=== PATIENT | male | born 1950 | race African-American/Black ===

== ENCOUNTER 2020-03-31 09:15 | Outpatient (RCR) | payer MEDICARE, SELFPAY | END 2020-05-16 23:59 | disposition home or self-care (01) | LOC: ANHDMC 09:15 | PROVIDERS: PCP Internal Medicine; Visit Provider Internal Medicine | DX: E11.65 Type 2 diabetes mellitus with hyperglycemia (principal); Z71.89 Other specified counseling | CPT/HCPCS: G0108 ==

== ENCOUNTER 2020-07-19 09:15 | Outpatient (RCR) | payer MEDICARE, SELFPAY | END 2020-07-19 11:03 | disposition home or self-care (01) | LOC: ANHDMC 09:15 | PROVIDERS: PCP Internal Medicine; Visit Provider Internal Medicine | DX: E11.65 Type 2 diabetes mellitus with hyperglycemia (principal); Z71.89 Other specified counseling | CPT/HCPCS: G0108 ==

== ENCOUNTER 2020-12-02 10:20 | Outpatient (RCR) | payer MEDICARE, SELFPAY | END 2020-12-02 11:37 | disposition home or self-care (01) | LOC: ANHDMC 10:20 | PROVIDERS: PCP Internal Medicine; Visit Provider Internal Medicine | DX: E11.65 Type 2 diabetes mellitus with hyperglycemia (principal); Z71.89 Other specified counseling | CPT/HCPCS: G0108 ==

== ENCOUNTER 2023-03-29 08:09 | Outpatient (CLI) | payer MEDICARE, SELFPAY ==
--- NOTE | ~2023-03-29 | XR_ITS ---
Clinical Indication: Cough PA and lateral views of the chest: Comparison: None Findings: Left lower lobe consolidation is consistent with pneumonia. Right lung is clear. Cardiomed iastinal silhouette is within normal limits. Bones and soft tissues are unremarkable. Impression: Left lower lobe pneumonia. Follow-up to radiographic resolution is advised. Reviewed, dictated and finalized at [facility]. Impression: Left lower lobe pneumonia. Follow-up to radiographic resolution is advised.
== END 2023-03-29 08:10 | disposition home or self-care (01) ==
PROVIDERS: PCP Nurse Practitioner; Visit Provider Nurse Practitioner
DX: R05.9 Cough, unspecified (principal); J18.9 Pneumonia, unspecified organism
CPT/HCPCS: 71046

== ENCOUNTER 2023-05-02 09:23 | Outpatient (CLI) | payer MEDICARE, SELFPAY ==
--- NOTE | ~2023-05-02 | US_ITS ---
EXAMINATION: US soft tissue LE RT DATE: 05/02/2023 10:07 INDICATION: Right thigh mass. TECHNIQUE: Multiple grayscale and Doppler ultrasound images of the right thigh were obtained. COMPARISON: None FINDINGS: There is no abnormal mass in the patient's area of concern in right lateral thigh. IMPRESSION: 1. No abnormal mass in the patient's area of concern in right lateral thigh. Reviewed, dictated and finalized at location E.
--- NOTE | ~2023-05-02 | XR_ITS ---
Clinical Indication: Pneumonia PA and lateral views of the chest: Comparison: 03/29/2023 Findings: There is persistent left lower lobe airspace consolidation. Right lung clear. Cardiomedias tinal silhouette is within normal limits. Bones and soft tissues are unremarkable. Impression: Persistent left lower lobe airspace consolidation, again suspicious for pneumonia. Continued follow-u p to radiographic resolution is advised. Reviewed, dictated and finalized at location . Impression: Persistent left lower lobe airspace consolidation, again suspicious for pneumon ia. Continued follow-up to radiographic resolution is advised.
== END 2023-05-02 09:24 | disposition home or self-care (01) ==
PROVIDERS: PCP Nurse Practitioner; Visit Provider Nurse Practitioner
DX: R22.41 Localized swelling, mass and lump, right lower limb (principal); J18.9 Pneumonia, unspecified organism
CPT/HCPCS: 71046; 76882

== ENCOUNTER 2023-05-13 07:28 | Outpatient (CLI) | payer MEDICARE, SELFPAY ==
--- NOTE | ~2023-05-13 | CT_ITS ---
EXAMINATION: CT LE RT wo con DATE: 05/13/2023 08:03 INDICATION: Right thigh mass and pain. The patient describes 8 lateral bumps in the thigh. TECHNIQUE: Computed tomography (CT) of the right lower limb was performed without intravenous contras t. Automated exposure control and iterative reconstruction technique were employed. The dose-length p roduct was 943.93 mGy-cm. COMPARISON: Ultrasound 05/02/2023 FINDINGS: Bone alignment is normal. No fracture. There is moderate right hip osteoarthritis and mild right knee osteoarthritis. There is sclerosis in distal femur and proximal tibia, consistent with ost eonecrosis. No knee joint effusion. There is a 6 x 13 mm cortical lytic lesion in proximal femoral di aphysis laterally. The prostate is moderately enlarged. There is a right inguinal hernia containing f at. IMPRESSION: 1. No abnormal soft tissue mass to correlate with the patient's symptoms. 2. Osteonecrosis involving distal femur and proximal tibia. 3. 13 mm cortical lytic lesion in proximal right femoral diaphysis laterally. This finding is most li nicole benign, but metastatic disease or multiple myeloma cannot be excluded. 4. Polyarticular osteoarthritis. Reviewed, dictated and finalized at location A. IMPRESSION: 1. No abnormal soft tissue mass to correlate with the patient's symptoms. 2. Osteonecrosis involving distal femur and proximal tibia. 3. 13 mm cortical lytic lesion in proximal right femoral diaphysis laterally. T his finding is most likely benign, but metastatic disease or multiple myeloma c annot be excluded. 4. Polyarticular osteoarthritis.
== END 2023-05-13 07:29 | disposition home or self-care (01) ==
PROVIDERS: PCP Nurse Practitioner; Visit Provider Nurse Practitioner
DX: R22.41 Localized swelling, mass and lump, right lower limb (principal)
CPT/HCPCS: 73700

== ENCOUNTER 2023-12-24 13:04 | Outpatient (CLI) | payer MEDICARE, SELFPAY ==
--- NOTE | ~2023-12-24 | US_ITS ---
EXAMINATION:US venous doppler LE BI INDICATION:Leg swelling TECHNIQUE: Multiple grayscale, color flow and Doppler images of the right and left lower extremity de ep venous systems were obtained and reviewed. COMPARISON:No prior studies for comparison. FINDINGS: The common femoral, superficial femoral and popliteal veins demonstrate normal respiratory variation, augmentation and compressibility. Color flow is also seen within the posterior tibial, pe roneal, greater saphenous and profunda veins. IMPRESSION: 1: No lower extremity deep venous thrombosis. Reviewed, dictated and finalized at location B.
== END 2023-12-24 13:05 | disposition home or self-care (01) ==
LOC: ANHIMG 13:07
PROVIDERS: PCP Nurse Practitioner
DX: M79.89 Other specified soft tissue disorders (principal)
CPT/HCPCS: 93970

== ENCOUNTER 2024-01-15 07:13 | Outpatient (CLI) | payer MEDICARE, SELFPAY ==
--- NOTE | ~2024-01-15 | XR_ITS ---
Left Shoulder Technique: AP and scapular Y views were obtained. Clinical History: Pain Findings: No fracture or dislocation is seen. Osseous alignment is anatomic. The glenohumeral and acr omioclavicular joint spaces demonstrate minimal degenerative change. Soft tissues are unremarkable. Impression: Minimal degenerative change, as above. Reviewed, dictated and finalized at location M. Impression: Minimal degenerative change, as above.
== END 2024-01-15 07:14 | disposition home or self-care (01) ==
LOC: ANHIMG 07:16
PROVIDERS: PCP Nurse Practitioner; Visit Provider Nurse Practitioner
DX: M25.512 Pain in left shoulder (principal); G89.29 Other chronic pain
CPT/HCPCS: 73030

== ENCOUNTER 2024-03-03 12:47 | Emergency (ER) | payer MEDICARE, SELFPAY ==
[2024-03-03 12:57] VITALS: BP 99/56; PULSE 85; RESP 16; TEMP 37.2; O2SAT 97
[2024-03-03 13:01] VITALS: BP 99/56; PULSE 85; RESP 16; TEMP 37.2; O2SAT 97
--- NOTE | 2024-03-03 13:01 | ED.FALL ---
HPI - Fall General Chief Complaint: Fall Stated Complaint: Fall Injury, Lower Back Pain/Sore Time Seen by Provider: 03/03/24 13:28 Source: patient and RN notes reviewed Mode of arrival: ambulatory Limitations: no limitations History of Present Illness HPI Narrative: 74-year-old male presents with concern for a wound on his coccyx. Reports he fell a couple of weeks ago was hospitalized for a few days after the fall. He reports the wound was the results of the fall but has been getting worse. He reports his oncologist told him to come here for evaluation of the wound. Reports it is draining and he has been using a pad to catch the drainage. Patient is being treated for stage IV lung cancer, uses a walker at baseline. MD complaint: other (wound) Related Data Home Medications Medication Instructions Recorded Confirmed acetaminophen 325 mg capsule 325 mg PO Q6H PRN Pain 09/24/23 03/03/24 (Tylenol) cholecalciferol (vitamin D3) 1 tab-cap PO DAILY 09/24/23 03/03/24 multivitamin with minerals-folic 1 tablet PO DAILY 09/24/23 03/03/24 acid 80 mcg chewable tablet (Centrum Adult 50 Plus) oxycodone 5 mg tablet 5 mg PO Q8H PRN Pain 09/24/23 03/03/24 timolol maleate 0.5 % eye drops 1 drp EACH EYE Q12H 09/24/23 03/03/24 Allergies Allergy/AdvReac Type Severity Reaction Status Date / Time celecoxib Allergy Intermediate RASH ON Verified 03/03/24 12:49 STOMACH AND CHEST Review of Systems Review of Systems: CONSTITUTIONAL: Denies malaise, chills, sweats, or fever. CARDIOVASCULAR: Denies chest pain, palpitations, or edema. SKIN: Reports draining wound on his buttock MUSCULOSKELETAL: Denies myalgia. 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 ANG on CPAP Rheumatoid arthritis Type 2 diabetes mellitus with diabetic neuropathy Surgical History Surgical History (Updated 02/04/24 @ 11:14 by Reba Delarosa [facility]) History of knee surgery 1994, left knee History of surgery on lower extremity right thigh cancer removal Family History Family History Father Family history of glaucoma Family history of diabetes mellitus in first degree relative Diabetes mellitus Cerebrovascular accident Other Acute myocardial infarction Family history of malignant neoplasm Hypertension Social History Social History (Updated 02/04/24 @ 11:15 by Reba Delarosa [facility]) Smoking packs per day: 0.5 Smoking cigarettes per day: 10.0 Years smoked: 30 Smoking pack-years: 15.00 Smoking status: Former smoker Smoking end date: 09/02/92 Alcohol intake: former Substance use: never Substance use type: does not use Current Housing: Decline to Answer Concerned About Future Housing: Decline to Answer Difficulty Paying Gas/Electric Bills: Decline to Answer Difficulty Paying for Meds: Decline to Answer Currently Unemployed: Decline to Answer Education: Decline to Answer Difficulty w/ Childcare or Family Care: Decline to Answer Living arrangements: alone Occupation/Education: retired Comments At time of signature, agree with nursing past medical, surgical, social and family history. There is no relevant family history pertinent to the presenting complaint Exam Narrative: GENERAL: Well-appearing, well-nourished, and in no acute distress. HEAD: Normocephalic, atraumatic. EYES: PERRLA, conjunctivae clear, and EOMI. ENT: Mucous membranes moist. NECK: Supple. No lymphadenopathy CHEST: Speaks in full sentences. No respiratory distress. H
== END 2024-03-03 13:45 | disposition home or self-care (01) ==
PROVIDERS: Emergency Provider Nurse Practitioner; PCP Nurse Practitioner
DX: L89.159 Pressure ulcer of sacral region, unspecified stage (principal); C34.90 Malignant neoplasm of unspecified part of unspecified bronchus or lung; M19.90 Unspecified osteoarthritis, unspecified site; I10 Essential (primary) hypertension; E78.5 Hyperlipidemia, unspecified; G47.33 Obstructive sleep apnea (adult) (pediatric); M06.9 Rheumatoid arthritis, unspecified; E11.40 Type 2 diabetes mellitus with diabetic neuropathy, unspecified; N40.1 Benign prostatic hyperplasia with lower urinary tract symptoms
CPT/HCPCS: 99213; G0463

== ENCOUNTER 2024-03-04 10:46 | Inpatient (IN) | payer MEDICARE, SELFPAY ==
--- NOTE | ~2024-03-04 | XR_ITS ---
EXAMINATION: XR sacrum coccyx min 2V DATE: 03/05/2024 10:33 INDICATION: Large sacral ulcer. TECHNIQUE: 3 views of the sacrum and coccyx were obtained. COMPARISON: None. FINDINGS: There is 3 mm anterolisthesis of L4 on L5. There is mild lumbar spondylosis. There is mild osteoarthritis of the hips. There is a sacral decubitus ulcer with soft tissue gas. IMPRESSION: 1. Sacral decubitus ulcer. No specific evidence of osteomyelitis. Reviewed, dictated and finalized at location E.
[2024-03-04 11:26] VITALS: BP 111/59; PULSE 86; RESP 16; TEMP 36.4; O2SAT 96
[2024-03-04 13:04] LABS: Hematocrit 31.3 % (42.0-52.0); Hemoglobin 9.6 g/dL (14.0-18.0); Mean Corpuscular HGB Conc 30.7 g/dl (32-36); Mean Corpuscular Hemoglobin 31.4 pg (26-34); Mean Corpuscular Volume 102.3 fl (80-100); Mean Platelet Volume 8.6 fl (7.4-10.4); Platelet Count Result 203 k/mm3 (150-375); Red Blood Count 3.06 M/mm3 (4.6-6.20); Red Cell Distribution Width 15.2 % (11.5-14.5); White Blood Count 4.9 K/mm3 (4.5-10.0)
--- NOTE | 2024-03-04 13:15 | ED.GENADULT ---
HPI - General Adult General Chief complaint: Unspecified Stated complaint: RECTAL BLEEDING Time Seen by Provider: 03/04/24 12:05 History of Present Illness HPI narrative: Patient is a 74-year-old male the emergency department this afternoon complaining of worsening sacral wound. Patient states about 3 weeks ago he fell onto his sacrum and sustained a wound and that it has been growing and getting worse. Patient states that given the location of it every time he uses the bathroom and wipes he feels as though he is sloughing off some of the skin. The sacral wound has increased in size for the past 3 weeks. Patient admits that he has not seen wound care as he has not been able to get. Patient states that his doctor called our wound clinic and be states that they were not able to get him in for another 3 weeks. Patient states that his doctor is concern for the wound getting infected and was placed on clindamycin which he has had 1 dose yesterday. Patient states that now the wound is draining a foul odor with intermittent and bleeding. He denies any fevers or chills at home and denies any additional concerns or symptoms at this time. Related Data Home Medications Medication Instructions Recorded Confirmed acetaminophen 325 mg capsule 325 mg PO Q6H PRN Pain 09/24/23 03/03/24 (Tylenol) cholecalciferol (vitamin D3) 1 tab-cap PO DAILY 09/24/23 03/03/24 multivitamin with minerals-folic 1 tablet PO DAILY 09/24/23 03/03/24 acid 80 mcg chewable tablet (Centrum Adult 50 Plus) oxycodone 5 mg tablet 5 mg PO Q8H PRN Pain 09/24/23 03/03/24 timolol maleate 0.5 % eye drops 1 drp EACH EYE Q12H 09/24/23 03/03/24 Allergies Allergy/AdvReac Type Severity Reaction Status Date / Time celecoxib Allergy Intermediate RASH ON Verified 03/04/24 11:30 STOMACH AND CHEST Review of Systems Review of Systems: All systems are reviewed and are negative unless stated otherwise in the HPI. 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 ANG on CPAP Rheumatoid arthritis Type 2 diabetes mellitus with diabetic neuropathy Surgical History Surgical History History of knee surgery 1994, left knee History of surgery on lower extremity right thigh cancer removal Family History Family History Father Family history of glaucoma Family history of diabetes mellitus in first degree relative Diabetes mellitus Cerebrovascular accident Other Acute myocardial infarction Family history of malignant neoplasm Hypertension Social History Social History Smoking packs per day: 0.5 Smoking cigarettes per day: 10.0 Years smoked: 30 Smoking pack-years: 15.00 Smoking status: Former smoker Smoking end date: 09/02/92 Alcohol intake: former Substance use: never Substance use type: does not use Current Housing: Decline to Answer Concerned About Future Housing: Decline to Answer Difficulty Paying Gas/Electric Bills: Decline to Answer Difficulty Paying for Meds: Decline to Answer Currently Unemployed: Decline to Answer Education: Decline to Answer Difficulty w/ Childcare or Family Care: Decline to Answer Living arrangements: alone Occupation/Education: retired Exam Narrative: General: Alert, awake, afebrile, in no acute distress. HEENT: PERRL, no rhinorrhea, no post nasal drip, oropharynx clear. Cardiovascular: Regular rate and rhythm, no murmurs, rubs or gallops, no peripheral edema. Respiratory: Clear to aus
[2024-03-04 13:19] LABS: Alanine Aminotransferase 19 U/L (6-50); Albumin Level 3.5 g/dL (3.5-5.1); Alkaline Phosphatase 87 U/L (38-126); Anion Gap 11 mmol/L (4-12); Aspartate Amino Transferase 38 U/L (17-59); Bilirubin,Total 0.6 mg/dL (0.2-1.3); Blood Urea Nitrogen 15 mg/dL (9-20); Carbon Dioxide 20 mmol/L (22-30); Chloride 105 mmol/L (98-107); Estimated CRCL calculation 54 ml/min; Estimated Glomerular Filt Rate > 60; Glucose 212 mg/dL (65-110); Potassium 3.3 mmol/L (3.4-5.0); Sodium 136 mmol/L (137-145)
[2024-03-04 13:23] LABS: Band Neutrophils Percent 4 % (0-6); Lymphocytes Absolute Manual 0.93 K/mm3 (1.1-4.5); Monocytes Absolute Manual 0.78 K/mm3 (0.1-0.90); Monocytes Percent Manual 16 % (3-9); Neutrophils Absolute Manual 3.18 K/mm3 (1.3-6.7); Neutrophils Percent Manual 61 % (46-73); Total Cells Counted 100
[2024-03-04 13:25] LABS: Macrocytosis 1+ (NORMAL); Platelet Estimate Adequate (Adequate); Schistocytes None Seen
[2024-03-04 13:26] LABS: CRP 12.4 mg/dL (<1.0)
[2024-03-04 14:15] LABS: Erythrocyte Sedimentation Rate > 140 mm/hr (0-20)
[2024-03-04 15:26] VITALS: BP 98/50; PULSE 81; RESP 18; TEMP 36.7; O2SAT 99
--- NOTE | 2024-03-04 15:59 | ADMGEN ---
This patient, Lisa Frank Jr., was admitted to 3 [facility] Surg Room 311-01. Patient/family oriented to hospital policies and general routines including ID bracelet, bed and alarms, visiting hours, pain management, procedures, bathroom and other care routines, personal items, smoking policy, room service/diet, and visiting hours. Information on how to activate the Rapid Response Team has been discussed. Patient/Family are encouraged to report perceived risks to care and to ask questions if they do not understand what they are told or what they should do.
[2024-03-04] MEDS: VANCOMYCIN 1,000 MG/NS 250 ML 1,000 MG/250 ML BAG 250 MG IVPB (17:40)
[2024-03-04] MEDS: SOD HYPOCHLORITE 1/4 STRENGTH 473 ML 1 APPLIC TOPICAL (17:41)
[2024-03-04] MEDS: ceFAZolin 2 GM/D5W 50 ML 2 GM/50 ML BAG IVPB (18:47)
[2024-03-04 20:55] VITALS: BP 93/54; PULSE 87; RESP 20; TEMP 36.6; O2SAT 99
[2024-03-04 22:45] VITALS: RESP 14; O2SAT 99
[2024-03-05] MEDS: ceFAZolin 2 GM/D5W 50 ML 2 GM/50 ML BAG IVPB ×3 (01:09→17:37)
--- NOTE | 2024-03-05 02:13 | PM.IMHP ---
H&P: HPI History of Present Illness Date/Time: 03/05/24 02:13 Chief Complaint: Bleeding and pus drainage from sacral wound Narrative: This is a pleasant 74-year-old male with PMH arthritis requiring walker for ambulation, BPH, glaucoma, hypertension, hyperlipidemia, lung cancer currently being treated, ANG on CPAP compliant, insulin-dependent diabetes mellitus, dyslipidemia, who presents complaining of worsening of his sacral wound. Few weeks ago he fell on his butt and since then has a wound and has not been able to get in to see wound care yet. 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 ER demonstrated BP of 111/59 and lowest 99/50. He has a history of low blood pressure. WBC 4.9, hemoglobin 9.6 without any values to compare previously, potassium 3.3, CRP 12.4. Received a dose of vancomycin and cefazolin 2 g x 1. Admitted for further workup of infected sacral wound on 03/05/2024. 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 ANG on CPAP Rheumatoid arthritis Type 2 diabetes mellitus with diabetic neuropathy Surgical History Surgical History History of knee surgery 1994, left knee History of surgery on lower extremity right thigh cancer removal Family History Family History (Updated 03/04/24 @ 16:12 by Crissy Conrad RN) Father Diabetes mellitus Family history of diabetes mellitus in first degree relative Family history of glaucoma Cerebrovascular accident Other Acute myocardial infarction Cancer Family history of malignant neoplasm Hypertension Social History Social History Smoking packs per day: 0.5 Smoking cigarettes per day: 10.0 Years smoked: 30 Smoking pack-years: 15.00 Smoking status: Never smoker Smoking end date: 09/02/92 Alcohol intake: never Substance use: never Substance use type: does not use Do You Feel Safe in your Home?: Yes Lack of Transportation: No Lack of Food: Never True Current Housing: I Have Housing Concerned About Future Housing: No Difficulty Paying Gas/Electric Bills: No Difficulty Paying for Meds: No Currently Unemployed: No Education: High School Diploma/GED Difficulty w/ Childcare or Family Care: No Living arrangements: alone Occupation/Education: retired Spiritual care concerns: Yes (JW - no blood) Meds Home Medications and Allergies Home Medications Medication Instructions Recorded Confirmed Type blood pressure test kit-large #1 ea 05/13/20 03/04/24 Rx blood sugar diagnostic (Accu-Chek #200 strips 10/09/22 03/04/24 Rx Guide test strips) lancets (Accu-Chek Softclix See Rx Instructions .Route 10/17/22 03/04/24 Rx Lancets) .COMPLEX #600 ea acetaminophen 325 mg capsule 325 mg PO Q6H PRN Pain 09/24/23 03/04/24 History (Tylenol) cholecalciferol (vitamin D3) 1 tab-cap PO DAILY 09/24/23 03/04/24 History multivitamin with minerals-folic 1 tablet PO DAILY 09/24/23 03/04/24 History acid 80 mcg chewable tablet (Centrum Adult 50 Plus) oxycodone 5 mg tablet 5 mg PO Q8H PRN Pain 09/24/23 03/04/24 History timolol maleate 0.5 % eye drops 1 drp EACH EYE Q12H 09/24/23 03/04/24 History tamsulosin 0.4 mg capsule See Rx Instructions .Route 10/07/23 03/04/24 Rx .COMPLEX #180 caps semaglutide 0.25 mg or 0.5 mg (2 See Rx Instructions .Route 04
[2024-03-05] MEDS: oxyCODONE HCL (*CRX) 5 MG TAB IR PO ×3 (03:22→16:58)
[2024-03-05] MEDS: POTASSIUM CHLORIDE 20 MEQ ER TABLET PO (03:23)
[2024-03-05] MEDS: SOD HYPOCHLORITE 1/4 STRENGTH 473 ML 1 APPLIC TOPICAL ×3 (03:39→20:55)
[2024-03-05] MEDS: SODIUM CHLORIDE 0.9% IV 1,000 ML 100 ML IV CONT (03:39)
[2024-03-05 05:15] VITALS: BP 103/55; PULSE 99; RESP 16; TEMP 36.9; O2SAT 99
[2024-03-05 06:06] LABS: Hematocrit 27.6 % (42.0-52.0); Hemoglobin 8.5 g/dL (14.0-18.0); Mean Corpuscular HGB Conc 30.8 g/dl (32-36); Mean Corpuscular Volume 100.7 fl (80-100); Mean Platelet Volume 8.2 fl (7.4-10.4); Platelet Count Result 187 k/mm3 (150-375); Red Blood Count 2.74 M/mm3 (4.6-6.20); Red Cell Distribution Width 15.3 % (11.5-14.5); White Blood Count 5.1 K/mm3 (4.5-10.0)
[2024-03-05 06:15] LABS: Estimated CRCL calculation 54 ml/min; Estimated Glomerular Filt Rate > 60
[2024-03-05 06:18] LABS: Anion Gap 10 mmol/L (4-12); Blood Urea Nitrogen 12 mg/dL (9-20); Calcium 7.7 mg/dL (8.4-10.2); Carbon Dioxide 19 mmol/L (22-30); Chloride 109 mmol/L (98-107); Estimated CRCL calculation 54 ml/min; Estimated Glomerular Filt Rate > 60; Glucose 184 mg/dL (65-110); Magnesium 2.1 mg/dL (1.6-2.3); Potassium 3.2 mmol/L (3.4-5.0); Sodium 138 mmol/L (137-145)
[2024-03-05 06:27] LABS: Iron 21 ug/dL (49-181)
[2024-03-05 06:37] LABS: Percent Iron Saturation 13 % (20-50)
[2024-03-05 07:23] LABS: Folic Acid 17.6 ng/mL (2.76->20)
[2024-03-05 07:49] LABS: Glucose Point of Care 161 mg/dl (65-105)
[2024-03-05] MEDS: TAMSULOSIN HCL 0.4 MG CAPSULE 0.8 MG BY MOUTH (08:06)
[2024-03-05] MEDS: ATORVASTATIN 40 MG TABLET 80 MG BY MOUTH (08:06)
[2024-03-05] MEDS: GABAPENTIN 300 MG CAPSULE BY MOUTH ×3 (08:07→16:58)
[2024-03-05] MEDS: EZETIMIBE 10 MG TABLET PO (08:07)
[2024-03-05] MEDS: MULTIVITS W-FE,MIN CHEWABLE TABLET 1 TABLET PO (08:08)
[2024-03-05] MEDS: TIMOLOL MALEATE 0.5% OP SOLN 5 ML BOTTLE 1 DROP EACH EYE ×2 (08:08→20:55)
[2024-03-05] MEDS: INSULIN GLARGINE (*BKC) 100 UNITS/ML 10 UNITS SUB-Q (08:19)
--- NOTE | 2024-03-05 09:38 | PM.IMPN ---
Progress Note: A&P Assessment and Plan (1) Chronic ulcer of sacral region: Code(s): L98.429 - Non-pressure chronic ulcer of back with unspecified severity Status: Acute (2) Infected pressure ulcer: Code(s): L89.90 - Pressure ulcer of unspecified site, unspecified stage; L08.9 - Local infection of the skin and subcutaneous tissue, unspecified Status: Acute Assessment and Plan: Continue vancomycin and cefazolin for mildly infected chronic sacral ulcer - Wound culture taken - Wound care consulted normal saline 100 cc/hour- will d/c now as BP improved. Had some hypotensive episodes in the ER- will monitor for now Blood cultures pending. CRP is elevated so will check x-ray of the sacrum. Possible osteomyelitis. 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 -check HbA1c- 8 -continue gabapentin (4) Acute blood loss anemia: Code(s): D62 - Acute posthemorrhagic anemia Status: Acute Assessment and Plan: Patient likely has acute blood loss anemia due to bleeding from the wound. iron studies and folate and vitamin B12 as well. Macrocytosis. monitor (5) Acute hypokalemia: Code(s): E87.6 - Hypokalemia Status: Acute Assessment and Plan: Acute hypokalemia replaced. Recheck for a.m. labs -will add daily replacement Plan Full code. SCD Time Spent With Patient Time with patient: 25 - 35 minutes Subjective Date/time seen: 03/05/24 09:38 Interval history: This is a pleasant 74-year-old male with PMH arthritis requiring walker for ambulation, BPH, glaucoma, hypertension, hyperlipidemia, lung cancer currently being treated, ANG on CPAP compliant, insulin-dependent diabetes mellitus, dyslipidemia, who presents complaining of worsening of his sacral wound. Few weeks ago he fell on his butt and since then has a wound and has not been able to get in to see wound care yet. 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 ER demonstrated BP of 111/59 and lowest 99/50. He has a history of low blood pressure. WBC 4.9, hemoglobin 9.6 without any values to compare previously, potassium 3.3, CRP 12.4. Received a dose of vancomycin and cefazolin 2 g x 1. Admitted for further workup of infected sacral wound on 03/05/2024. 7/4- pt is seen and examined at the bedside. He is alert and oriented, just took pain medication- so pain is still present but subsiding. He denies chest pain, sob. Friedns at the bedside- vising. Review of Systems Review of Systems: All systems reviewed & are unremarkable except as noted in HPI and below (Subject) Musculoskeletal: Musculoskeletal: Reports back pain Comments: chronic Neurologic: Denies confusion and Denies vertigo Psychiatric: Psychiatric: Denies confusion Exam Const: General: comfortable and no acute distress Other: A&O x3. Eyes: Pupils: Equal, round and reactive pupils present Neck: Neck: supple Resp: Effort & Inspection: normal respiratory effort Auscultation: clear to auscultation bilaterally Cardio: Rate: regular rate Rhythm: regular rhythm Skin: Other: large sacral pressure sore with pink granulation tissue, pain to palpation and purulent discharge however no over extending erythema Neuro: Cranial nerves: Yes Equal, round and reactive pupils present Extrem: General: no edema Objective Data Vital Signs Vital Signs: Vital Signs - 24 hr 03/04/24 11:26 07
[2024-03-05] MEDS: ACETAMINOPHEN 325 MG TABLET PO ×2 (10:17→16:59)
[2024-03-05 11:37] LABS: Glucose Point of Care 191 mg/dl (65-105)
[2024-03-05] MEDS: CHOLECALCIFEROL 5,000 UNITS TABLET 5000 UNITS BY MOUTH (13:03)
[2024-03-05 14:00] VITALS: BP 88/52; PULSE 82; RESP 16; TEMP 37.2; O2SAT 96
[2024-03-05 14:04] VITALS: O2SAT 90
[2024-03-05] MEDS: VANCOMYCIN 1,000 MG/NS 250 ML 1,000 MG/250 ML BAG 250 MG IVPB (15:16)
[2024-03-05 16:49] LABS: Glucose Point of Care 176 mg/dl (65-105)
[2024-03-05 21:21] LABS: Glucose Point of Care 167 mg/dl (65-105)
[2024-03-05 22:00] VITALS: BP 100/54; PULSE 87; RESP 16; TEMP 36.4; O2SAT 94
[2024-03-05 22:11] VITALS: RESP 18; O2SAT 94
[2024-03-06] MEDS: ceFAZolin 2 GM/D5W 50 ML 2 GM/50 ML BAG IVPB ×3 (00:42→17:17)
[2024-03-06] MEDS: oxyCODONE HCL (*CRX) 5 MG TAB IR PO ×4 (00:48→23:38)
[2024-03-06] MEDS: ACETAMINOPHEN 325 MG TABLET PO ×4 (00:51→23:40)
[2024-03-06 06:00] VITALS: BP 96/50; PULSE 82; RESP 16; TEMP 36.2; O2SAT 96
[2024-03-06 07:04] LABS: Hematocrit 28.3 % (42.0-52.0); Hemoglobin 8.7 g/dL (14.0-18.0); Mean Corpuscular HGB Conc 30.7 g/dl (32-36); Mean Corpuscular Hemoglobin 30.7 pg (26-34); Mean Platelet Volume 8.1 fl (7.4-10.4); Platelet Count Result 183 k/mm3 (150-375); Red Blood Count 2.83 M/mm3 (4.6-6.20); Red Cell Distribution Width 15.1 % (11.5-14.5)
[2024-03-06 07:20] LABS: Anion Gap 4 mmol/L (4-12); Blood Urea Nitrogen 11 mg/dL (9-20); Calcium 7.7 mg/dL (8.4-10.2); Carbon Dioxide 25 mmol/L (22-30); Chloride 109 mmol/L (98-107); Estimated CRCL calculation 61 ml/min; Estimated Glomerular Filt Rate > 60; Glucose 110 mg/dL (65-110); Potassium 3.2 mmol/L (3.4-5.0); Sodium 138 mmol/L (137-145)
--- NOTE | 2024-03-06 07:50 | PM.IMPN ---
Progress Note: A&P Assessment and Plan (1) Chronic ulcer of sacral region: Code(s): L98.429 - Non-pressure chronic ulcer of back with unspecified severity Status: Acute (2) Infected pressure ulcer: Code(s): L89.90 - Pressure ulcer of unspecified site, unspecified stage; L08.9 - Local infection of the skin and subcutaneous tissue, unspecified Status: Acute Assessment and Plan: -Continue vancomycin and cefazolin for mildly infected chronic sacral ulcer - Wound culture taken - Wound care consulted normal saline 100 cc/hour- will d/c now as BP improved. Had some hypotensive episodes in the ER- will monitor for now Blood cultures pending. CRP is elevated so will check x-ray of the sacrum. Possible osteomyelitis. 03/06- sacrum/coccyx xray completed- Sacral decubitus ulcer. No specific evidence of osteomyelitis -WOUND care nurse saw pt- Dakins solution and recommended surgical consult. will place order. surgery saw him at the bedside: Continue local wound care with Dakin solution, will need debridement in the operating room, continue antibiotics, pressure offloading (3) Type 2 diabetes mellitus with diabetic neuropathy: Qualifiers: Diabetes mellitus vermin exterminator insulin use: without longterm use Qualified Code(s): E11.40 - Type 2 diabetes mellitus with diabetic neuropathy, unspecified Code(s): E11.40 - Type 2 diabetes mellitus with diabetic neuropathy, unspecified Status: Acute Assessment and Plan: -glucose monitoring ACHS, LDISS, hypoglycemia protocol -continue COOK SHIP long-acting insulin 10 units daily. -check HbA1c- 8 -continue gabapentin (4) Acute blood loss anemia: Code(s): D62 - Acute posthemorrhagic anemia Status: Acute Assessment and Plan: Patient likely has acute blood loss anemia due to bleeding from the wound. iron studies and folate and vitamin B12 as well. Macrocytosis. monitor (5) Acute hypokalemia: Code(s): E87.6 - Hypokalemia Status: Acute Assessment and Plan: Acute hypokalemia replaced. Recheck for a.m. labs -will add daily replacement Plan Full code. SCD Time Spent With Patient Time with patient: 25 - 35 minutes Subjective Date/time seen: 03/06/24 07:50 Interval history: This is a pleasant 74-year-old male with PMH arthritis requiring walker for ambulation, BPH, glaucoma, hypertension, hyperlipidemia, lung cancer currently being treated, ANG on CPAP compliant, insulin-dependent diabetes mellitus, dyslipidemia, who presents complaining of worsening of his sacral wound. Few weeks ago he fell on his butt and since then has a wound and has not been able to get in to see wound care yet. Concern of the wound getting infected with bleeding from it and pus drainage and even so his doctor 1 day COOK SHIP and was prescribed clindamycin. ER demonstrated BP of 111/59 and lowest 99/50. He has a history of low blood pressure. WBC 4.9, hemoglobin 9.6 without any values to compare previously, potassium 3.3, CRP 12.4. Received a dose of vancomycin and cefazolin 2 g x 1. Admitted for further workup of infected sacral wound on 03/05/2024. 03/05- pt is seen and examined at the bedside. He is alert and oriented, just took pain medication- so pain is still present but subsiding. He denies chest pain, sob. Friedns at the bedside- vising. 03/06- pt is seen and examined- BP somewhat soft- he was getting some IV fluids yesterday for that- but he is asymptomatic and reports BP at home on a lower side as well. His Hg is stable this morning-8.7 K still 3.2- will replace IV and continue oral. Wound care saw him today- dakins solution q12h and recommend surgical consult- will add. Review of Systems Review of Systems: All systems reviewed & are unremarkable except as noted in HPI and below (Subject) ENT: Denies vertigo Musculoskeletal: Musculoskeletal: Reports back pain Neurologic: Denies confusion and Denies vertigo Psych
[2024-03-06] MEDS: GABAPENTIN 300 MG CAPSULE BY MOUTH ×3 (08:34→15:59)
[2024-03-06] MEDS: POTASSIUM CHLORIDE 20 MEQ PACKET (FOR LIQUID) PO (08:34)
[2024-03-06] MEDS: ATORVASTATIN 40 MG TABLET 80 MG BY MOUTH (08:34)
[2024-03-06] MEDS: MAGNESIUM OXIDE 400 MG TABLET PO (08:34)
[2024-03-06] MEDS: TAMSULOSIN HCL 0.4 MG CAPSULE 0.8 MG BY MOUTH (08:34)
[2024-03-06] MEDS: EZETIMIBE 10 MG TABLET PO (08:34)
[2024-03-06] MEDS: MULTIVITS W-FE,MIN CHEWABLE TABLET 1 TABLET PO (08:35)
[2024-03-06] MEDS: TIMOLOL MALEATE 0.5% OP SOLN 5 ML BOTTLE 1 DROP EACH EYE ×2 (08:35→20:33)
[2024-03-06] MEDS: CHOLECALCIFEROL 5,000 UNITS TABLET 5000 UNITS BY MOUTH (08:35)
[2024-03-06] MEDS: KCL 20 MEQ/SW 100 ML 100 ML 50 MEQ IVPB (08:51)
[2024-03-06] MEDS: INSULIN GLARGINE (*BKC) 100 UNITS/ML 10 UNITS SUB-Q (10:30)
[2024-03-06] MEDS: SOD HYPOCHLORITE 1/4 STRENGTH 473 ML 1 APPLIC TOPICAL ×2 (11:13→22:29)
[2024-03-06 11:32] LABS: Glucose Point of Care 141 mg/dl (65-105)
--- NOTE | 2024-03-06 11:45 | PM.CNGS ---
Assessment and Plan Assessment and plan (1) Chronic ulcer of sacral region: Code(s): L98.429 - Non-pressure chronic ulcer of back with unspecified severity Status: Acute Assessment and Plan: Continue local wound care with Dakin solution, will need debridement in the operating room, continue antibiotics, pressure offloading History of Present Illness Consult details Consult date: 03/06/24 Reason for consult: wound care Requesting physician: Jeanna Ruiz MD Narrative: The patient is a 74-year-old male with multiple medical issues presenting to the hospital with a worsening sacral wound. The patient reports he fell a few weeks ago and developed a wound in his upper buttock. He reports that the wound is nonhealing despite some local wound care. The patient reports it painful and has began to drain bloody, purulent fluid. The patient denies any systemic symptoms including fevers or chills. The patient was seen by his primary started him on clindamycin. Review of Systems Review of Systems: All systems reviewed & are unremarkable except as noted in HPI and below PMFSH Past Medical History Medical History Arthritis BPH associated with nocturia Broken internal left knee prosthesis Glaucoma H/O: HTN (hypertension) Hyperlipidemia LDL goal <100 Hypogonadism in male Lung cancer stage 4 Mass of right thigh Narcolepsy Neuropathy OAB (overactive bladder) On intermediate drug therapy ANG on CPAP Rheumatoid arthritis Type 2 diabetes mellitus with diabetic neuropathy Surgical History Surgical History History of knee surgery 1994, left knee History of surgery on lower extremity right thigh cancer removal Family History Family History Father Diabetes mellitus Family history of diabetes mellitus in first degree relative Family history of glaucoma Cerebrovascular accident Other Acute myocardial infarction Cancer Family history of malignant neoplasm Hypertension Social History Social History Smoking packs per day: 0.5 Smoking cigarettes per day: 10.0 Years smoked: 30 Smoking pack-years: 15.00 Smoking status: Never smoker Smoking end date: 09/02/92 Alcohol intake: never Substance use: never Substance use type: does not use Do You Feel Safe in your Home?: Yes Lack of Transportation: No Lack of Food: Never True Current Housing: I Have Housing Concerned About Future Housing: No Difficulty Paying Gas/Electric Bills: No Difficulty Paying for Meds: No Currently Unemployed: No Education: High School Diploma/GED Difficulty w/ Childcare or Family Care: No Living arrangements: alone Occupation/Education: retired Spiritual care concerns: Yes (JW - no blood) Meds Home Medications and Allergies Home Medications Medication Instructions Recorded Confirmed Type blood pressure test kit-large #1 ea 05/13/20 03/04/24 Rx blood sugar diagnostic (Accu-Chek #200 strips 10/09/22 03/04/24 Rx Guide test strips) lancets (Accu-Chek Softclix See Rx Instructions .Route 10/17/22 03/04/24 Rx Lancets) .COMPLEX #600 ea acetaminophen 325 mg capsule 325 mg PO Q6H PRN Pain 09/24/23 03/04/24 History (Tylenol) cholecalciferol (vitamin D3) 5,000 units PO DAILY 09/24/23 03/05/24 History multivitamin with minerals-folic 1 tablet PO DAILY 09/24/23 03/04/24 History acid 80 mcg chewable tablet (Centrum Adult 50 Plus) oxycodone 5 mg tablet 5 mg PO Q8H PRN Pain 09/24/23 03/04/24 History timolol maleate 0.5 % eye drops 1 drp EACH EYE Q12H 09/24/23 03/04/24 History tamsulosin 0.4 mg capsule See Rx Instructions .Route 10/07/23 03/04/24 Rx .COMPLEX #180 caps semaglutide 0.25 mg or 0.5 mg (2 See Rx Instructions .Route 12/02/23 03/04/24 Rx mg/3 mL) subcutane
[2024-03-06 14:00] VITALS: BP 96/44; PULSE 84; RESP 17; TEMP 37; O2SAT 93
[2024-03-06] MEDS: VANCOMYCIN 1,000 MG/NS 250 ML 1,000 MG/250 ML BAG 250 MG IVPB (15:54)
[2024-03-06 20:41] LABS: Glucose Point of Care 178 mg/dl (65-105)
[2024-03-06 21:36] VITALS: BP 95/53; PULSE 81; RESP 16; TEMP 36.2; O2SAT 96
[2024-03-06 22:32] VITALS: RESP 20; O2SAT 95
[2024-03-07] MEDS: ceFAZolin 2 GM/D5W 50 ML 2 GM/50 ML BAG IVPB ×3 (01:41→20:40)
[2024-03-07 05:51] LABS: Hematocrit 30.2 % (42.0-52.0); Hemoglobin 8.8 g/dL (14.0-18.0); Mean Corpuscular HGB Conc 29.1 g/dl (32-36); Mean Corpuscular Hemoglobin 30.4 pg (26-34); Mean Corpuscular Volume 104.5 fl (80-100); Mean Platelet Volume 8.7 fl (7.4-10.4); Platelet Count Result 191 k/mm3 (150-375); Red Blood Count 2.89 M/mm3 (4.6-6.20)
[2024-03-07 06:00] VITALS: BP 112/62; PULSE 80; RESP 16; TEMP 36.5; O2SAT 98
[2024-03-07 06:03] LABS: Anion Gap 3 mmol/L (4-12); Blood Urea Nitrogen 9 mg/dL (9-20); Calcium 7.8 mg/dL (8.4-10.2); Carbon Dioxide 24 mmol/L (22-30); Chloride 108 mmol/L (98-107); Estimated CRCL calculation 70 ml/min; Estimated Glomerular Filt Rate > 60; Glucose 145 mg/dL (65-110); Potassium 3.5 mmol/L (3.4-5.0); Sodium 135 mmol/L (137-145)
[2024-03-07 07:57] LABS: Glucose Point of Care 138 mg/dl (65-105)
--- NOTE | 2024-03-07 08:01 | PM.IMPN ---
Progress Note: A&P Assessment and Plan (1) Chronic ulcer of sacral region: Code(s): L98.429 - Non-pressure chronic ulcer of back with unspecified severity Status: Acute (2) Infected pressure ulcer: Code(s): L89.90 - Pressure ulcer of unspecified site, unspecified stage; L08.9 - Local infection of the skin and subcutaneous tissue, unspecified Status: Acute Assessment and Plan: -Continue vancomycin and cefazolin for mildly infected chronic sacral ulcer - Wound culture taken - Wound care consulted normal saline 100 cc/hour- will d/c now as BP improved. Had some hypotensive episodes in the ER- will monitor for now Blood cultures pending. CRP is elevated so will check x-ray of the sacrum. Possible osteomyelitis. 03/06- sacrum/coccyx xray completed- Sacral decubitus ulcer. No specific evidence of osteomyelitis -WOUND care nurse saw pt- Dakins solution and recommended surgical consult. will place order. surgery saw him at the bedside: Continue local wound care with Dakin solution, will need debridement in the operating room, continue antibiotics, pressure offloading (3) Type 2 diabetes mellitus with diabetic neuropathy: Qualifiers: Diabetes mellitus terminal gauger insulin use: without correction use Qualified Code(s): E11.40 - Type 2 diabetes mellitus with diabetic neuropathy, unspecified Code(s): E11.40 - Type 2 diabetes mellitus with diabetic neuropathy, unspecified Status: Acute Assessment and Plan: -glucose monitoring ACHS, LDISS, hypoglycemia protocol -continue RECEIVER DISPATCHER long-acting insulin 10 units daily. -check HbA1c- 8 -continue gabapentin (4) Acute blood loss anemia: Code(s): D62 - Acute posthemorrhagic anemia Status: Acute Assessment and Plan: Patient likely has acute blood loss anemia due to bleeding from the wound. monitor hg is 8.8 stable (5) Acute hypokalemia: Code(s): E87.6 - Hypokalemia Status: Acute Assessment and Plan: Acute hypokalemia replaced. Recheck for a.m. labs -will add daily replacement 03/07- reviewed and improved- will continue with daily K replacement for now Plan Full code. SCD Time Spent With Patient Time with patient: 25 - 35 minutes Subjective Date/time seen: 03/07/24 08:01 Interval history: This is a pleasant 74-year-old male with PMH arthritis requiring walker for ambulation, BPH, glaucoma, hypertension, hyperlipidemia, lung cancer currently being treated, ANG on CPAP compliant, insulin-dependent diabetes mellitus, dyslipidemia, who presents complaining of worsening of his sacral wound. Few weeks ago he fell on his butt and since then has a wound and has not been able to get in to see wound care yet. Concern of the wound getting infected with bleeding from it and pus drainage and even so his doctor 1 day RECEIVER DISPATCHER and was prescribed clindamycin. ER demonstrated BP of 111/59 and lowest 99/50. He has a history of low blood pressure. WBC 4.9, hemoglobin 9.6 without any values to compare previously, potassium 3.3, CRP 12.4. Received a dose of vancomycin and cefazolin 2 g x 1. Admitted for further workup of infected sacral wound on 03/05/2024. 03/05- pt is seen and examined at the bedside. He is alert and oriented, just took pain medication- so pain is still present but subsiding. He denies chest pain, sob. Friedns at the bedside- vising. 03/06- pt is seen and examined- BP somewhat soft- he was getting some IV fluids yesterday for that- but he is asymptomatic and reports BP at home on a lower side as well. His Hg is stable this morning-8.7 K still 3.2- will replace IV and continue oral. Wound care saw him today- dakins solution q12h and recommend surgical consult- will add. 03/07- pt is seen and examined. Gen surgery saw him 03/06- will need debridement in the operating room, continue antibiotics, pressure offloading . doing well otherwise- pain is well controlled. He is able to turn and reposition h
[2024-03-07] MEDS: INSULIN GLARGINE (*BKC) 100 UNITS/ML 10 UNITS SUB-Q (08:43)
[2024-03-07] MEDS: POTASSIUM CHLORIDE 20 MEQ PACKET (FOR LIQUID) PO (08:46)
[2024-03-07] MEDS: TAMSULOSIN HCL 0.4 MG CAPSULE 0.8 MG BY MOUTH (08:46)
[2024-03-07] MEDS: MULTIVITS W-FE,MIN CHEWABLE TABLET 1 TABLET PO (08:46)
[2024-03-07] MEDS: SOD HYPOCHLORITE 1/4 STRENGTH 473 ML 1 APPLIC TOPICAL ×2 (08:46→20:42)
[2024-03-07] MEDS: CHOLECALCIFEROL 5,000 UNITS TABLET 5000 UNITS BY MOUTH (08:46)
[2024-03-07] MEDS: EZETIMIBE 10 MG TABLET PO (08:46)
[2024-03-07] MEDS: MAGNESIUM OXIDE 400 MG TABLET PO (08:46)
[2024-03-07] MEDS: ATORVASTATIN 40 MG TABLET 80 MG BY MOUTH (08:46)
[2024-03-07] MEDS: GABAPENTIN 300 MG CAPSULE BY MOUTH ×3 (08:46→16:27)
[2024-03-07] MEDS: TIMOLOL MALEATE 0.5% OP SOLN 5 ML BOTTLE 1 DROP EACH EYE ×2 (08:47→20:40)
[2024-03-07] MEDS: ACETAMINOPHEN 325 MG TABLET PO ×2 (08:49→16:27)
[2024-03-07] MEDS: oxyCODONE HCL (*CRX) 5 MG TAB IR PO ×2 (08:49→16:27)
--- NOTE | 2024-03-07 10:54 | PM.PNGS ---
Progress Note: A&P Assessment and Plan (1) Chronic ulcer of sacral region: Code(s): L98.429 - Non-pressure chronic ulcer of back with unspecified severity Status: Acute Assessment and Plan: setup for debridement, washout on Saturday am Subjective Subjective Date/Time Seen: 03/07/24 10:54 Interval history: no acute issues Review of Systems Review of Systems: All systems reviewed & are unremarkable except as noted in HPI and below Exam Const: General: cooperative, comfortable and no acute distress Resp: Auscultation: diminished lung sounds Cardio: Rate: regular rate Rhythm: regular rhythm GI: Inspection: normal to inspection Back/Spine/Pelvis: Other: sacral ulcer - dressing C/D/I Objective Data Vital Signs Vital Signs: Vital Signs - 24 hr 03/06/24 14:00 03/06/24 21:36 03/06/24 22:32 Temperature 37.0 C 36.2 C L Pulse Rate 84 81 Respiratory Rate 17 16 20 Blood Pressure 96/44 L 95/53 L Pulse Oximetry 93 96 95 Oxygen Delivery CPAP 03/07/24 06:00 Temperature 36.5 C Pulse Rate 80 Respiratory Rate 16 Blood Pressure 112/62 Pulse Oximetry 98 Oxygen Delivery Intake/Output Intake/Output: Intake & Output 03/04/24 03/05/24 03/06/24 03/07/24 23:59 23:59 23:59 23:59 Intake Total 300 3277 3070 840 Output Total 3250 2175 900 Balance 300 27 895 -60 Meds/Results Medications: Active Medications Generic Name Dose Route Start Last Admin Trade Name Freq PRN Reason Stop Dose Admin Acetaminophen 325 mg 03/05/24 02:13 03/07/24 08:49 Acetaminophen 325 Mg Tablet PO 325 mg Q6H PRN Administration Pain 1-3 Atorvastatin Calcium 80 mg 03/05/24 09:00 03/07/24 08:46 Atorvastatin 40 Mg Tablet BY MOUTH 80 mg DAILY AXEL Administration Dextrose 12.5 gm 03/05/24 02:14 Dextrose 50% 25 Gm/50 Ml Syringe IV PUSH PRN PRN Hypoglycemia Protocol Ezetimibe 10 mg 03/05/24 09:00 03/07/24 08:46 Ezetimibe 10 Mg Tablet PO 10 mg DAILY AXEL Administration Gabapentin 300 mg 03/05/24 09:00 03/07/24 08:46 Gabapentin 300 Mg Capsule BY MOUTH 300 mg TID AXEL Administration Glucagon 1 mg 03/05/24 02:14 Glucagon For Inj 1 Mg Vial IM PRN PRN Hypoglycemia Protocol Glucose 15 gm 03/05/24 02:14 Glucose Oral Gel 15 Gm Of Glucse In 37.5 Gm Tube PO PRN PRN Hypoglycemia Protocol Vancomycin HCl 1,000 mg in 250 mls @ 250 mls/hr 03/04/24 16:00 03/06/24 15:54 Vancomycin 1,000 Mg/Ns 250 Ml IVPB 250 mls/hr Q24H AXEL Administration Cefazolin Sodium 2 gm in 50 mls @ 100 mls/hr 03/04/24 18:00 03/07/24 02:11 Ancef 2 Gm/D5w 50 Ml IVPB Infused Q8H AXEL Infusion Dextrose 1,000 mls @ 100 mls/hr 03/05/24 02:14 Dextrose 5% 1,000 Ml IVPB PRN PRN Hypoglycemia Protocol Insulin Aspart 2 - 5 units 03/05/24 08:00 03/07/24 08:40 Insulin Aspart (*Bkc) 100 Units/Ml SUB-Q Not Given TIDWM [facility] Protocol Insulin Aspart 1 - 2 units 03/05/24 21:00 03/06/24 21:00 Insulin Aspart (*Bkc) 100 Units/Ml SUB-Q Not Given HS [facility] Protocol Insulin Glargine 10 units 03/05/24 09:00 03/07/24 08:43 Insulin Glargine (*Bkc) 100 Units/Ml SUB-Q 10 units DAILY AXEL Administration Magnesium Oxide 400 mg 03/06/24 09:00 03/07/24 08:46 Magnesium Oxide 400 Mg Tablet PO 400 mg DAILY AXEL Administration Multivitamins/Minerals 1 tablet 03/05/24 09:00 03/07/24 08:46 Multivits W-Fe,Min Chewable Tablet PO 1 tablet DAILY AXEL Administration Oxycodone HCl 5 mg 03/05/24 09:44 03/07/24 08:49 Oxycodone Hcl (*Crx) 5 Mg Tab Ir PO 5 mg Q6H PRN Administration Pain 7-10 Potassium Chloride 20 meq 03/06/24 09:00 03/07/24 08:46 Potassium Chloride 20 Meq Packet (For Liquid) PO 20 meq DAILY AXEL Administration Sodium Hypochlorite 1 applic 03/04/24 09:00 03/07/24 08:46 Sod Hypochlorite 1/4 Strength 473 Ml TOPICAL 1 applic Q1
[2024-03-07 12:00] LABS: Glucose Point of Care 154 mg/dl (65-105)
[2024-03-07 14:00] VITALS: BP 96/44; PULSE 86; RESP 16; TEMP 37.4; O2SAT 98
[2024-03-07 15:30] LABS: Vancomycin Trough 5.5 ug/mL (10.0-20.0)
[2024-03-07 17:10] LABS: Glucose Point of Care 169 mg/dl (65-105)
[2024-03-07] MEDS: VANCOMYCIN 1,000 MG/NS 250 ML 1,000 MG/250 ML BAG 250 MG IVPB (18:00)
[2024-03-07 20:00] VITALS: O2SAT 98
[2024-03-07 21:44] LABS: Glucose Point of Care 153 mg/dl (65-105)
[2024-03-07 22:00] VITALS: BP 91/57; PULSE 83; RESP 20; TEMP 36.8; O2SAT 97
[2024-03-07 23:10] VITALS: PULSE 84; RESP 17; O2SAT 95
[2024-03-08 03:01] VITALS: O2SAT 95
[2024-03-08] MEDS: VANCOMYCIN 1,000 MG/NS 250 ML 1,000 MG/250 ML BAG 250 MG IVPB ×2 (05:10→16:54)
[2024-03-08] MEDS: ceFAZolin 2 GM/D5W 50 ML 2 GM/50 ML BAG IVPB ×3 (05:10→20:30)
[2024-03-08 06:00] VITALS: BP 106/62; PULSE 90; RESP 20; TEMP 37.3; O2SAT 98
[2024-03-08 06:20] LABS: Hematocrit 27.5 % (42.0-52.0); Hemoglobin 8.4 g/dL (14.0-18.0); Mean Corpuscular HGB Conc 30.5 g/dl (32-36); Mean Corpuscular Volume 101.5 fl (80-100); Mean Platelet Volume 8.8 fl (7.4-10.4); Platelet Count Result 197 k/mm3 (150-375); Red Blood Count 2.71 M/mm3 (4.6-6.20); Red Cell Distribution Width 15.2 % (11.5-14.5); White Blood Count 4.8 K/mm3 (4.5-10.0)
[2024-03-08 06:44] LABS: Anion Gap 5 mmol/L (4-12); Blood Urea Nitrogen 10 mg/dL (9-20); Calcium 7.8 mg/dL (8.4-10.2); Carbon Dioxide 26 mmol/L (22-30); Chloride 105 mmol/L (98-107); Estimated CRCL calculation 70 ml/min; Estimated Glomerular Filt Rate > 60; Glucose 124 mg/dL (65-110); Potassium 3.5 mmol/L (3.4-5.0); Sodium 136 mmol/L (137-145)
[2024-03-08 07:53] LABS: Glucose Point of Care 125 mg/dl (65-105)
--- NOTE | 2024-03-08 08:23 | PM.PNGS ---
Progress Note: A&P Assessment and Plan (1) Chronic ulcer of sacral region: Code(s): L98.429 - Non-pressure chronic ulcer of back with unspecified severity Status: Acute Assessment and Plan: will setup for OR tomorrow, cont local wound care and abx for now Subjective Subjective Date/Time Seen: 03/08/24 08:23 Interval history: no acute issues, will setup for surgery tomorrow Review of Systems Review of Systems: All systems reviewed & are unremarkable except as noted in HPI and below Exam Const: General: cooperative, comfortable and no acute distress Resp: Auscultation: clear to auscultation bilaterally Cardio: Rate: regular rate Rhythm: regular rhythm GI: Inspection: normal to inspection Back/Spine/Pelvis: Other: dressing C/D/I Objective Data Vital Signs Vital Signs: Vital Signs - 24 hr 03/07/24 14:00 03/07/24 20:00 03/07/24 22:00 Temperature 37.4 C 36.8 C Pulse Rate 86 83 Respiratory Rate 16 20 Blood Pressure 96/44 L 91/57 L Pulse Oximetry 98 98 97 Oxygen Delivery Room Air 03/07/24 23:10 03/08/24 03:01 03/08/24 06:00 Temperature 37.3 C Pulse Rate 84 90 Respiratory Rate 17 20 Blood Pressure 106/62 Pulse Oximetry 95 95 98 Oxygen Delivery Autopap Intake/Output Intake/Output: Intake & Output 03/05/24 03/06/24 03/07/24 03/08/24 23:59 23:59 23:59 23:59 Intake Total 3277 3070 1630 50 Output Total 3250 2175 900 950 Balance 27 895 730 -900 Meds/Results Medications: Active Medications Generic Name Dose Route Start Last Admin Trade Name Freq PRN Reason Stop Dose Admin Acetaminophen 325 mg 03/05/24 02:13 03/07/24 16:27 Acetaminophen 325 Mg Tablet PO 325 mg Q6H PRN Administration Pain 1-3 Atorvastatin Calcium 80 mg 03/05/24 09:00 03/07/24 08:46 Atorvastatin 40 Mg Tablet BY MOUTH 80 mg DAILY AXEL Administration Dextrose 12.5 gm 03/05/24 02:14 Dextrose 50% 25 Gm/50 Ml Syringe IV PUSH PRN PRN Hypoglycemia Protocol Ezetimibe 10 mg 03/05/24 09:00 03/07/24 08:46 Ezetimibe 10 Mg Tablet PO 10 mg DAILY AXEL Administration Gabapentin 300 mg 03/05/24 09:00 03/07/24 16:27 Gabapentin 300 Mg Capsule BY MOUTH 300 mg TID AXEL Administration Glucagon 1 mg 03/05/24 02:14 Glucagon For Inj 1 Mg Vial IM PRN PRN Hypoglycemia Protocol Glucose 15 gm 03/05/24 02:14 Glucose Oral Gel 15 Gm Of Glucse In 37.5 Gm Tube PO PRN PRN Hypoglycemia Protocol Dextrose 1,000 mls @ 100 mls/hr 03/05/24 02:14 Dextrose 5% 1,000 Ml IVPB PRN PRN Hypoglycemia Protocol Vancomycin HCl 1,000 mg in 250 mls @ 250 mls/hr 03/07/24 16:00 03/08/24 05:10 Vancomycin 1,000 Mg/Ns 250 Ml IVPB 250 mls/hr Q12H AXEL Administration Cefazolin Sodium 2 gm in 50 mls @ 100 mls/hr 03/08/24 06:00 03/08/24 05:40 Ancef 2 Gm/D5w 50 Ml IVPB Infused Q8HR AXEL Infusion Insulin Aspart 2 - 5 units 03/05/24 08:00 03/07/24 17:21 Insulin Aspart (*Bkc) 100 Units/Ml SUB-Q Not Given TIDWM [facility] Protocol Insulin Aspart 1 - 2 units 03/05/24 21:00 03/07/24 21:13 Insulin Aspart (*Bkc) 100 Units/Ml SUB-Q Not Given HS [facility] Protocol Insulin Glargine 10 units 03/05/24 09:00 03/07/24 08:43 Insulin Glargine (*Bkc) 100 Units/Ml SUB-Q 10 units DAILY AXEL Administration Magnesium Oxide 400 mg 03/06/24 09:00 03/07/24 08:46 Magnesium Oxide 400 Mg Tablet PO 400 mg DAILY AXEL Administration Multivitamins/Minerals 1 tablet 03/05/24 09:00 03/07/24 08:46 Multivits W-Fe,Min Chewable Tablet PO 1 tablet DAILY AXEL Administration Oxycodone HCl 5 mg 03/05/24 09:44 03/07/24 16:27 Oxycodone Hcl (*Crx) 5 Mg Tab Ir PO 5 mg Q6H PRN Administration Pain 7-10 Oxycodone HCl 2.5 mg 03/07/24 21:08 Oxycodone Hcl (*Crx) 2.5 Mg Tab Ir PO ONCE PRN Pain 4-6 Potassium Chloride 20 meq 03/06/24 09:00 03/07/24
[2024-03-08] MEDS: MAGNESIUM OXIDE 400 MG TABLET PO (08:53)
[2024-03-08] MEDS: GABAPENTIN 300 MG CAPSULE BY MOUTH ×3 (08:53→16:54)
[2024-03-08] MEDS: INSULIN GLARGINE (*BKC) 100 UNITS/ML 10 UNITS SUB-Q (08:53)
[2024-03-08] MEDS: MULTIVITS W-FE,MIN CHEWABLE TABLET 1 TABLET PO (08:53)
[2024-03-08] MEDS: ATORVASTATIN 40 MG TABLET 80 MG BY MOUTH (08:53)
[2024-03-08] MEDS: CHOLECALCIFEROL 5,000 UNITS TABLET 5000 UNITS BY MOUTH (08:53)
[2024-03-08] MEDS: TAMSULOSIN HCL 0.4 MG CAPSULE 0.8 MG BY MOUTH (08:53)
[2024-03-08] MEDS: EZETIMIBE 10 MG TABLET PO (08:53)
[2024-03-08] MEDS: ACETAMINOPHEN 325 MG TABLET PO ×2 (09:02→20:36)
[2024-03-08] MEDS: oxyCODONE HCL (*CRX) 5 MG TAB IR PO ×2 (09:02→20:31)
[2024-03-08] MEDS: TIMOLOL MALEATE 0.5% OP SOLN 5 ML BOTTLE 1 DROP EACH EYE ×2 (09:03→20:30)
[2024-03-08] MEDS: SOD HYPOCHLORITE 1/4 STRENGTH 473 ML 1 APPLIC TOPICAL ×2 (09:03→20:30)
[2024-03-08] MEDS: POTASSIUM CHLORIDE 20 MEQ PACKET (FOR LIQUID) PO (09:03)
--- NOTE | 2024-03-08 09:06 | PM.IMPN ---
Progress Note: A&P Assessment and Plan (1) Chronic ulcer of sacral region: Code(s): L98.429 - Non-pressure chronic ulcer of back with unspecified severity Status: Acute (2) Infected pressure ulcer: Code(s): L89.90 - Pressure ulcer of unspecified site, unspecified stage; L08.9 - Local infection of the skin and subcutaneous tissue, unspecified Status: Acute Assessment and Plan: -Continue vancomycin and cefazolin for mildly infected chronic sacral ulcer - Wound culture taken - Wound care consulted normal saline 100 cc/hour- will d/c now as BP improved. Had some hypotensive episodes in the ER- will monitor for now Blood cultures pending. CRP is elevated so will check x-ray of the sacrum. Possible osteomyelitis. 03/06- sacrum/coccyx xray completed- Sacral decubitus ulcer. No specific evidence of osteomyelitis -WOUND care nurse saw pt- Dakins solution and recommended surgical consult. will place order. surgery saw him at the bedside: Continue local wound care with Dakin solution, will need debridement in the operating room, continue antibiotics, pressure offloading 03/08- wound care and continue antibiotics for now. surgery is following (3) Type 2 diabetes mellitus with diabetic neuropathy: Qualifiers: Diabetes mellitus correction insulin use: without marine oil terminal superintendent use Qualified Code(s): E11.40 - Type 2 diabetes mellitus with diabetic neuropathy, unspecified Code(s): E11.40 - Type 2 diabetes mellitus with diabetic neuropathy, unspecified Status: Acute Assessment and Plan: -glucose monitoring ACHS, LDISS, hypoglycemia protocol -continue SUPER[employer] long-acting insulin 10 units daily. -check HbA1c- 8 -continue gabapentin (4) Acute blood loss anemia: Code(s): D62 - Acute posthemorrhagic anemia Status: Acute Assessment and Plan: Patient likely has acute blood loss anemia due to bleeding from the wound. monitor hg is 8.8 stable - continue to monitor - no s/s of bleeding from wound, no blood in urine or stool (5) Acute hypokalemia: Code(s): E87.6 - Hypokalemia Status: Acute Assessment and Plan: Acute hypokalemia replaced. Recheck for a.m. labs -will add daily replacement 03/07- reviewed and improved- will continue with daily K replacement for now Plan Full code. SCD Time Spent With Patient Time with patient: 25 - 35 minutes Subjective Date/time seen: 03/08/24 09:06 Interval history: This is a pleasant 74-year-old male with PMH arthritis requiring walker for ambulation, BPH, glaucoma, hypertension, hyperlipidemia, lung cancer currently being treated, ANG on CPAP compliant, insulin-dependent diabetes mellitus, dyslipidemia, who presents complaining of worsening of his sacral wound. Few weeks ago he fell on his butt and since then has a wound and has not been able to get in to see wound care yet. Concern of the wound getting infected with bleeding from it and pus drainage and even so his doctor 1 day [employer] and was prescribed clindamycin. ER demonstrated BP of 111/59 and lowest 99/50. He has a history of low blood pressure. WBC 4.9, hemoglobin 9.6 without any values to compare previously, potassium 3.3, CRP 12.4. Received a dose of vancomycin and cefazolin 2 g x 1. Admitted for further workup of infected sacral wound on 03/05/2024. 03/05- pt is seen and examined at the bedside. He is alert and oriented, just took pain medication- so pain is still present but subsiding. He denies chest pain, sob. Friedns at the bedside- vising. 03/06- pt is seen and examined- BP somewhat soft- he was getting some IV fluids yesterday for that- but he is asymptomatic and reports BP at home on a lower side as well. His Hg is stable this morning-8.7 K still 3.2- will replace IV and continue oral. Wound care saw him today- dakins solution q12h and recommend surgical consult- will add. 03/07- pt is seen and examined. Gen surgery saw him 03/06- will need debridem
[2024-03-08 11:24] LABS: Glucose Point of Care 180 mg/dl (65-105)
[2024-03-08 14:00] VITALS: BP 106/68; PULSE 95; RESP 20; TEMP 36.4; O2SAT 99
[2024-03-08 16:30] LABS: Glucose Point of Care 173 mg/dl (65-105)
[2024-03-08 20:00] VITALS: PULSE 88; RESP 19; O2SAT 97
[2024-03-08 20:23] LABS: Glucose Point of Care 225 mg/dl (65-105)
[2024-03-08] MEDS: INSULIN ASPART (*BKC) 100 UNITS/ML SUB-Q (20:30)
[2024-03-08 21:13] VITALS: BP 95/60; PULSE 86; RESP 18; TEMP 36.4; O2SAT 98
[2024-03-08 23:12] VITALS: RESP 19; O2SAT 96
[2024-03-09] VITALS (18 sets, daily range): BP systolic 98–121; BP diastolic 48–78; PULSE 71–93; RESP 14–21; TEMP 36.1–37.4; O2SAT 95–100
[2024-03-09 03:55] LABS: Hematocrit 27.5 % (42.0-52.0); Hemoglobin 8.4 g/dL (14.0-18.0); Mean Corpuscular HGB Conc 30.5 g/dl (32-36); Mean Corpuscular Hemoglobin 31.1 pg (26-34); Mean Corpuscular Volume 101.9 fl (80-100); Mean Platelet Volume 8.7 fl (7.4-10.4); Platelet Count Result 191 k/mm3 (150-375); Red Cell Distribution Width 15.3 % (11.5-14.5); White Blood Count 3.5 K/mm3 (4.5-10.0)
[2024-03-09 04:03] LABS: Anion Gap 5 mmol/L (4-12); Blood Urea Nitrogen 10 mg/dL (9-20); Calcium 7.9 mg/dL (8.4-10.2); Carbon Dioxide 26 mmol/L (22-30); Chloride 104 mmol/L (98-107); Estimated CRCL calculation 70 ml/min; Estimated Glomerular Filt Rate > 60; Glucose 186 mg/dL (65-110); Potassium 3.4 mmol/L (3.4-5.0); Sodium 135 mmol/L (137-145)
[2024-03-09] MEDS: VANCOMYCIN 1,000 MG/NS 250 ML 1,000 MG/250 ML BAG 250 MG IVPB ×2 (04:45→17:22)
[2024-03-09] MEDS: oxyCODONE HCL (*CRX) 5 MG TAB IR PO ×2 (06:22→17:24)
[2024-03-09] MEDS: ACETAMINOPHEN 325 MG TABLET PO ×2 (06:22→17:24)
[2024-03-09] MEDS: ceFAZolin 2 GM/D5W 50 ML 2 GM/50 ML BAG IVPB ×3 (06:25→20:52)
[2024-03-09 06:58] LABS: Glucose Point of Care 158 mg/dl (65-105)
--- NOTE | 2024-03-09 07:06 | WPDANESEPPF ---
Anes - Initial Pre Proc Eval Procedure: Operation Date: 03/09/24 11:30 Proposed Procedures p Debridement Complex Sacral Decubitus Ulcer - Pilar Angulo MD Date/Time: 03/09/24 07:06 Surgeon: Jeanna Ruiz MD Pre Op Diagnosis: Sacral Ulcer Patient Data Age: 74 Gender: M Height: 1.55 m Weight: 54.5 kg Last Vital Signs Temp 36.3 C L 03/09/24 05:32 Pulse 84 03/09/24 05:32 Resp 18 03/09/24 05:32 BP 101/59 L 03/09/24 05:32 Pulse Ox 98 03/09/24 05:32 O2 Del Method CPAP 03/09/24 02:12 Allergies Allergy/AdvReac Type Severity Reaction Status Date / Time celecoxib Allergy Intermediate RASH ON Verified 03/04/24 11:30 STOMACH AND CHEST Home Medications Medication Instructions Recorded Confirmed Type blood pressure test kit-large #1 ea 05/13/20 03/04/24 Rx blood sugar diagnostic (Accu-Chek #200 strips 10/09/22 03/04/24 Rx Guide test strips) lancets (Accu-Chek Softclix See Rx Instructions .Route 10/17/22 03/04/24 Rx Lancets) .COMPLEX #600 ea acetaminophen 325 mg capsule 325 mg PO Q6H PRN Pain 09/24/23 03/04/24 History (Tylenol) cholecalciferol (vitamin D3) 5,000 units PO DAILY 09/24/23 03/05/24 History multivitamin with minerals-folic 1 tablet PO DAILY 09/24/23 03/04/24 History acid 80 mcg chewable tablet (Centrum Adult 50 Plus) oxycodone 5 mg tablet 5 mg PO Q8H PRN Pain 09/24/23 03/04/24 History timolol maleate 0.5 % eye drops 1 drp EACH EYE Q12H 09/24/23 03/04/24 History tamsulosin 0.4 mg capsule See Rx Instructions .Route 10/07/23 03/04/24 Rx .COMPLEX #180 caps semaglutide 0.25 mg or 0.5 mg (2 See Rx Instructions .Route 12/02/23 03/04/24 Rx mg/3 mL) subcutaneous pen injector .COMPLEX #9 mL (Ozempic) atorvastatin 80 mg tablet See Rx Instructions .Route 12/06/23 03/04/24 Rx .COMPLEX #90 tabs canagliflozin 300 mg tablet 300 mg PO DAILY #90 tabs 01/13/24 03/04/24 Rx (Invokana) ezetimibe 10 mg tablet 10 mg PO DAILY #90 tabs 01/13/24 03/04/24 Rx gabapentin 300 mg capsule See Rx Instructions .Route 01/13/24 03/04/24 Rx .COMPLEX #270 caps insulin glargine 100 unit/mL (3 10 unit (0.1 mL) subcut DAILY 90 01/13/24 03/04/24 Rx mL) subcutaneous pen (agl days #9 mL KwikPen U-100 Insulin) lisinopril 20 mg tablet 20 mg PO DAILY #90 tabs 01/13/24 03/04/24 Rx pen needle, diabetic 32 gauge x #100 ea 01/13/24 03/04/24 Rx (BD Ultra-Fine Destiny Pen Needle) clindamycin HCl 300 mg capsule 300 mg PO Q8H 7 days #21 caps 03/03/24 03/04/24 Rx Laboratory Tests 03/08/24 03/08/24 03/08/24 07:50 11:20 16:28 WBC RBC Hgb Hct MCV MCH MCHC RDW Plt Count MPV Sodium Potassium Chloride Carbon Dioxide Anion Gap BUN Creatinine Estim Creat Clear Calc Estimated GFR Glucose POC Capillary Glucose 125 H mg/dl 180 H mg/dl 173 H mg/dl (65-105) (65-105) (65-105) Calcium Vancomycin Trough 03/08/24 03/09/24 03/09/24 20:00 03:31 06:55 WBC 3.5 L K/mm3 (4.5-10.0) RBC 2.70 L M/mm3 (4.6-6.20) Hgb 8.4 L g/dL (14.0-18.0) Hct 27.5 L % (42.0-52.0) MCV 101.9 H fl (80-100) MCH 31.1 pg (26-34) MCHC 30.5 L g/dl (32-36) RDW 15.3 H % (11.5-14.5) Plt Count 191 k/mm3 (150-375) MPV 8.7 fl (7.4-10.4) Sodium 135 L mmol/L (137-145) Potassium 3.4 mmol/L (3.4-5.0) Chloride 104 mmol/L (98-107) Carbon Dioxide 26 mmol/L (22-30) Anion Gap 5 mmol/L (4-12) BUN 10 mg/dL (9-20) Creatinine 0.60 L mg/dL (0.7-1.3) Estim Creat Clear Calc 70 ml/min Estimated GFR > 60 (59 - ) G
--- NOTE | 2024-03-09 07:20 | WPDHPUPDATE1 ---
History and Physical Update Update Date/Time: 03/09/24 07:20 History and Physical has been reviewed, including an updated exam of the patient. There are NO changes in the patient's condition. Risks, benefits, and alternatives have been discussed and questions answered. Patient agrees to proceed with procedure.
[2024-03-09] MEDS: LACTATED RINGERS 1,000 ML 30 ML IV CONT (08:00)
--- NOTE | 2024-03-09 08:03 | W.PM.PROC2 ---
Procedure Note - Detailed Date of Procedure 03/09/24 Pre-op Diagnosis Sacral decubitus ulcer Post-op Diagnosis Same Procedure Performed complex debridement stage III sacral decubitus ulcer measuring 11 x 5.3 x 3.5 cm, washout Surgeon Pilar Angulo MD Anesthesia General Indications 74-year-old male presenting with a large sacral decubitus ulcer that was initially infected , large amount of overlying the necrotic tissue Findings 11 x 5.3 x 3.5 stage III sacral decubitus ulcer Description of Procedure The patient was taken the operating placed in the lateral position. After adequate induction of general anesthesia, the patient was prepped and draped in the normal sterile fashion. A time-out was then done to verify the patient's identity, as well as the procedure being performed. I began by debriding the obviously necrotic tissue overlying the ulcer. This necrotic tissue included the dermis, subcutaneous tissue, and some underlying muscle. This necrotic tissue was debrided to healthy, pink, viable tissue. There was noted to be a layer of fascia, muscle overlying the sacrum itself that was viable. No obvious infection was noted at this time. Once the entire area was debrided, the measurements were 11 x 5.3 x 3.5 cm. Hemostasis was then gained with the Bovie cautery. I then washed out the cavity. The cavity was then packed with wet Kerlix. Sterile dressing was then placed. The patient tolerated the procedure well and was extubated postoperatively. He will be transferred to the recovery room in stable condition. Estimated Blood Loss 5 Drains No Packing Yes Pathology None sent Complications No immediate complications Condition Stable Disposition PACU [facility] Billing Surgery - Charge Forward: Surgery Billing
--- NOTE | 2024-03-09 08:03 | PM.IMPN ---
Progress Note: A&P Assessment and Plan (1) Chronic ulcer of sacral region: Code(s): L98.429 - Non-pressure chronic ulcer of back with unspecified severity Status: Acute (2) Infected pressure ulcer: Code(s): L89.90 - Pressure ulcer of unspecified site, unspecified stage; L08.9 - Local infection of the skin and subcutaneous tissue, unspecified Status: Acute Assessment and Plan: -Continue vancomycin and cefazolin for mildly infected chronic sacral ulcer - Wound culture taken - Wound care consulted normal saline 100 cc/hour- will d/c now as BP improved. Had some hypotensive episodes in the ER- will monitor for now Blood cultures pending. CRP is elevated so will check x-ray of the sacrum. Possible osteomyelitis. 03/06- sacrum/coccyx xray completed- Sacral decubitus ulcer. No specific evidence of osteomyelitis -WOUND care nurse saw pt- Dakins solution and recommended surgical consult. will place order. surgery saw him at the bedside: Continue local wound care with Dakin solution, will need debridement in the operating room, continue antibiotics, pressure offloading 03/08- wound care and continue antibiotics for now. surgery is following 03/09- surgery today (3) Type 2 diabetes mellitus with diabetic neuropathy: Qualifiers: Diabetes mellitus halfway insulin use: without termite renewal inspector use Qualified Code(s): E11.40 - Type 2 diabetes mellitus with diabetic neuropathy, unspecified Code(s): E11.40 - Type 2 diabetes mellitus with diabetic neuropathy, unspecified Status: Acute Assessment and Plan: -glucose monitoring ACHS, LDISS, hypoglycemia protocol -continue REVIEW CONSULTANT long-acting insulin 10 units daily. -check HbA1c- 8 -continue gabapentin (4) Acute blood loss anemia: Code(s): D62 - Acute posthemorrhagic anemia Status: Acute Assessment and Plan: Patient likely has acute blood loss anemia due to bleeding from the wound. monitor hg is 8.8 stable - continue to monitor - no s/s of bleeding from wound, no blood in urine or stool (5) Acute hypokalemia: Code(s): E87.6 - Hypokalemia Status: Acute Assessment and Plan: Acute hypokalemia replaced. Recheck for a.m. labs -will add daily replacement 03/07- reviewed and improved- will continue with daily K replacement for now Plan Full code. SCD Time Spent With Patient Time with patient: 25 - 35 minutes Subjective Date/time seen: 03/09/24 08:03 Interval history: This is a pleasant 74-year-old male with PMH arthritis requiring walker for ambulation, BPH, glaucoma, hypertension, hyperlipidemia, lung cancer currently being treated, ANG on CPAP compliant, insulin-dependent diabetes mellitus, dyslipidemia, who presents complaining of worsening of his sacral wound. Few weeks ago he fell on his butt and since then has a wound and has not been able to get in to see wound care yet. Concern of the wound getting infected with bleeding from it and pus drainage and even so his doctor 1 day REVIEW CONSULTANT and was prescribed clindamycin. ER demonstrated BP of 111/59 and lowest 99/50. He has a history of low blood pressure. WBC 4.9, hemoglobin 9.6 without any values to compare previously, potassium 3.3, CRP 12.4. Received a dose of vancomycin and cefazolin 2 g x 1. Admitted for further workup of infected sacral wound on 03/05/2024. 03/05- pt is seen and examined at the bedside. He is alert and oriented, just took pain medication- so pain is still present but subsiding. He denies chest pain, sob. Friedns at the bedside- vising. 03/06- pt is seen and examined- BP somewhat soft- he was getting some IV fluids yesterday for that- but he is asymptomatic and reports BP at home on a lower side as well. His Hg is stable this morning-8.7 K still 3.2- will replace IV and continue oral. Wound care saw him today- dakins solution q12h and recommend surgical consult- will add. 03/07- pt is seen and examined. Gen surgery saw him 03/06-
[2024-03-09 08:12] LABS: Glucose Point of Care 173 mg/dl (65-105)
[2024-03-09] MEDS: fentaNYL CITRATE INJ (*CRX) 100 MCG/2 ML VIAL 25 MCG IV PUSH ×4 (08:38→09:10)
[2024-03-09 11:40] LABS: Glucose Point of Care 177 mg/dl (65-105)
[2024-03-09] MEDS: CHOLECALCIFEROL 5,000 UNITS TABLET 5000 UNITS BY MOUTH (13:04)
[2024-03-09] MEDS: EZETIMIBE 10 MG TABLET PO (13:04)
[2024-03-09] MEDS: GABAPENTIN 300 MG CAPSULE BY MOUTH ×2 (13:04→17:20)
[2024-03-09] MEDS: TAMSULOSIN HCL 0.4 MG CAPSULE 0.8 MG BY MOUTH (13:04)
[2024-03-09] MEDS: SOD HYPOCHLORITE 1/4 STRENGTH 473 ML 1 APPLIC TOPICAL (13:04)
[2024-03-09] MEDS: POTASSIUM CHLORIDE 20 MEQ PACKET (FOR LIQUID) PO (13:04)
[2024-03-09] MEDS: ATORVASTATIN 40 MG TABLET 80 MG BY MOUTH (13:04)
[2024-03-09] MEDS: MAGNESIUM OXIDE 400 MG TABLET PO (13:04)
[2024-03-09] MEDS: MULTIVITS W-FE,MIN CHEWABLE TABLET 1 TABLET PO (13:04)
[2024-03-09] MEDS: TIMOLOL MALEATE 0.5% OP SOLN 5 ML BOTTLE 1 DROP EACH EYE ×2 (13:05→20:51)
[2024-03-09 16:30] LABS: Glucose Point of Care 173 mg/dl (65-105)
[2024-03-09 20:45] LABS: Glucose Point of Care 337 mg/dl (65-105)
[2024-03-09] MEDS: INSULIN ASPART (*BKC) 100 UNITS/ML SUB-Q (20:55)
[2024-03-10 04:00] VITALS: BP 113/52; PULSE 90; RESP 18; TEMP 36.9; O2SAT 98
[2024-03-10] MEDS: VANCOMYCIN 1,000 MG/NS 250 ML 1,000 MG/250 ML BAG 250 MG IVPB (04:55)
[2024-03-10] MEDS: ceFAZolin 2 GM/D5W 50 ML 2 GM/50 ML BAG IVPB (05:00)
[2024-03-10] MEDS: SOD HYPOCHLORITE 1/4 STRENGTH 473 ML 1 APPLIC TOPICAL ×2 (05:11→14:15)
[2024-03-10 06:21] LABS: Hematocrit 27.4 % (42.0-52.0); Hemoglobin 8.4 g/dL (14.0-18.0); Mean Corpuscular HGB Conc 30.7 g/dl (32-36); Mean Corpuscular Hemoglobin 31.7 pg (26-34); Mean Corpuscular Volume 103.4 fl (80-100); Mean Platelet Volume 8.8 fl (7.4-10.4); Platelet Count Result 190 k/mm3 (150-375); Red Blood Count 2.65 M/mm3 (4.6-6.20); Red Cell Distribution Width 15.4 % (11.5-14.5); White Blood Count 4.8 K/mm3 (4.5-10.0)
[2024-03-10] MEDS: oxyCODONE HCL (*CRX) 5 MG TAB IR PO ×2 (06:27→12:43)
[2024-03-10 06:33] LABS: Anion Gap 8 mmol/L (4-12); Blood Urea Nitrogen 12 mg/dL (9-20); Calcium 7.8 mg/dL (8.4-10.2); Carbon Dioxide 24 mmol/L (22-30); Chloride 106 mmol/L (98-107); Estimated CRCL calculation 61 ml/min; Estimated Glomerular Filt Rate > 60; Glucose 181 mg/dL (65-110); Potassium 3.6 mmol/L (3.4-5.0); Sodium 138 mmol/L (137-145)
[2024-03-10 07:36] LABS: Glucose Point of Care 176 mg/dl (65-105)
[2024-03-10 08:00] VITALS: BP 99/55; PULSE 87; RESP 20; TEMP 36.5; O2SAT 96
[2024-03-10] MEDS: POTASSIUM CHLORIDE 20 MEQ PACKET (FOR LIQUID) PO (09:12)
[2024-03-10] MEDS: INSULIN GLARGINE (*BKC) 100 UNITS/ML 10 UNITS SUB-Q (09:12)
[2024-03-10] MEDS: ATORVASTATIN 40 MG TABLET 80 MG BY MOUTH (09:13)
[2024-03-10] MEDS: GABAPENTIN 300 MG CAPSULE BY MOUTH ×2 (09:13→12:41)
[2024-03-10] MEDS: MAGNESIUM OXIDE 400 MG TABLET PO (09:13)
[2024-03-10] MEDS: EZETIMIBE 10 MG TABLET PO (09:13)
[2024-03-10] MEDS: CHOLECALCIFEROL 5,000 UNITS TABLET 5000 UNITS BY MOUTH (09:13)
[2024-03-10] MEDS: TAMSULOSIN HCL 0.4 MG CAPSULE 0.8 MG BY MOUTH (09:13)
[2024-03-10] MEDS: TIMOLOL MALEATE 0.5% OP SOLN 5 ML BOTTLE 1 DROP EACH EYE (09:13)
[2024-03-10] MEDS: MULTIVITS W-FE,MIN CHEWABLE TABLET 1 TABLET PO (09:13)
--- NOTE | 2024-03-10 09:37 | WPDANESPN ---
Anes - Prog Note Post-Op Date/Time: 03/10/24 09:37 Cardiovascular status: normal Respiratory status: normal Airway patency: baseline Mental status: baseline Post-Op hydration status: normal Vital Signs: Last Vital Signs Temp 36.5 C 03/10/24 08:00 Pulse 87 03/10/24 08:00 Resp 20 03/10/24 08:00 BP 99/55 L 03/10/24 08:00 Pulse Ox 96 03/10/24 08:00 O2 Del Method Room Air 03/09/24 20:00 O2 Flow Rate 6 03/09/24 08:15 Pain Score (VAS): Patient asleep, no nonverbal signs of pain present. I/O: Intake & Output 03/09/24 03/10/24 03/10/24 23:59 07:59 15:59 Intake Total 550 550 240 Output Total 500 550 Balance 50 0 240 Laboratory Tests 03/10/24 06:10 03/10/24 06:10 03/09/24 03/09/24 03/09/24 11:36 16:25 20:31 WBC RBC Hgb Hct MCV MCH MCHC RDW Plt Count MPV Sodium Potassium Chloride Carbon Dioxide Anion Gap BUN Creatinine Estim Creat Clear Calc Estimated GFR Glucose POC Capillary Glucose 177 H 173 H 337 H Calcium 03/10/24 03/10/24 06:10 07:28 WBC 4.8 RBC 2.65 L Hgb 8.4 L Hct 27.4 L MCV 103.4 H MCH 31.7 MCHC 30.7 L RDW 15.4 H Plt Count 190 MPV 8.8 Sodium 138 Potassium 3.6 Chloride 106 Carbon Dioxide 24 Anion Gap 8 BUN 12 Creatinine 0.70 Estim Creat Clear Calc 61 Estimated GFR > 60 Glucose 181 H POC Capillary Glucose 176 H Calcium 7.8 L Microbiology 03/04/24 21:07 Blood Blood Culture - Final 03/04/24 21:07 Blood Blood Culture - Final Post-procedural complaints: none Patient Feedback: Patient satisfied with anesthetic care.
[2024-03-10 11:28] LABS: Glucose Point of Care 229 mg/dl (65-105)
[2024-03-10 12:00] VITALS: BP 102/54; PULSE 86; RESP 18; TEMP 36.3; O2SAT 96
--- NOTE | 2024-03-10 12:22 | PM.PNGS ---
Progress Note: A&P Assessment and Plan (1) Chronic ulcer of sacral region: Code(s): L98.429 - Non-pressure chronic ulcer of back with unspecified severity Status: Acute Assessment and Plan: s/p debridement, cont local wound care, no s/s active infection and no need for further abx for this, will need home health for wound care, f/u wound care center in 2 wks Subjective Subjective Date/Time Seen: 03/10/24 12:22 Interval history: no acute issues, feels ok Review of Systems Review of Systems: All systems reviewed & are unremarkable except as noted in HPI and below Exam Const: General: cooperative, comfortable, no acute distress and ill appearing Resp: Auscultation: diminished lung sounds Cardio: Rate: regular rate Rhythm: regular rhythm GI: Inspection: normal to inspection Back/Spine/Pelvis: Other: sacral wound - dressing C/D/I Objective Data Vital Signs Vital Signs: Vital Signs - 24 hr 03/09/24 16:00 03/09/24 20:06 03/09/24 20:00 Temperature 37.2 C 37.4 C Pulse Rate 93 91 Respiratory Rate 14 18 Blood Pressure 109/63 105/58 L Pulse Oximetry 96 97 97 Oxygen Delivery Room Air 03/09/24 23:12 03/10/24 04:00 03/10/24 08:00 Temperature 36.3 C L 36.9 C 36.5 C Pulse Rate 84 90 87 Respiratory Rate 18 18 20 Blood Pressure 98/48 L 113/52 L 99/55 L Pulse Oximetry 97 98 96 Oxygen Delivery Intake/Output Intake/Output: Intake & Output 03/07/24 03/08/24 03/09/24 03/10/24 23:59 23:59 23:59 23:59 Intake Total 1630 2370 1265 790 Output Total 900 2350 1600 550 Balance 730 20 -335 240 Meds/Results Medications: Active Medications Generic Name Dose Route Start Last Admin Trade Name Freq PRN Reason Stop Dose Admin Acetaminophen 325 mg 03/05/24 02:13 03/09/24 17:24 Acetaminophen 325 Mg Tablet PO 325 mg Q6H PRN Administration Pain 1-3 Atorvastatin Calcium 80 mg 03/05/24 09:00 03/10/24 09:13 Atorvastatin 40 Mg Tablet BY MOUTH 80 mg DAILY AXEL Administration Cephalexin HCl 500 mg 03/10/24 12:00 Cephalexin 500 Mg Capsule PO Q6HR AXEL Dextrose 12.5 gm 03/05/24 02:14 Dextrose 50% 25 Gm/50 Ml Syringe IV PUSH PRN PRN Hypoglycemia Protocol Ezetimibe 10 mg 03/05/24 09:00 03/10/24 09:13 Ezetimibe 10 Mg Tablet PO 10 mg DAILY AXEL Administration Gabapentin 300 mg 03/05/24 09:00 03/10/24 09:13 Gabapentin 300 Mg Capsule BY MOUTH 300 mg TID AXEL Administration Glucagon 1 mg 03/05/24 02:14 Glucagon For Inj 1 Mg Vial IM PRN PRN Hypoglycemia Protocol Glucose 15 gm 03/05/24 02:14 Glucose Oral Gel 15 Gm Of Glucse In 37.5 Gm Tube PO PRN PRN Hypoglycemia Protocol Dextrose 1,000 mls @ 100 mls/hr 03/05/24 02:14 Dextrose 5% 1,000 Ml IVPB PRN PRN Hypoglycemia Protocol Insulin Aspart 2 - 5 units 03/05/24 08:00 03/10/24 11:35 Insulin Aspart (*Bkc) 100 Units/Ml SUB-Q Not Given [facility]IDWM [facility] Protocol Insulin Aspart 1 - 2 units 03/05/24 21:00 03/09/24 20:55 Insulin Aspart (*Bkc) 100 Units/Ml SUB-Q 2 units HS AXEL Administration Protocol Insulin Glargine 10 units 03/05/24 09:00 03/10/24 09:12 Insulin Glargine (*Bkc) 100 Units/Ml SUB-Q 10 units DAILY AXEL Administration Magnesium Oxide 400 mg 03/06/24 09:00 03/10/24 09:13 Magnesium Oxide 400 Mg Tablet PO 400 mg DAILY AXEL Administration Multivitamins/Minerals 1 tablet 03/05/24 09:00 03/10/24 09:13 Multivits W-Fe,Min Chewable Tablet PO 1 tablet DAILY AXEL Administration Oxycodone HCl 5 mg 03/05/24 09:44 03/10/24 06:27 Oxycodone Hcl (*Crx) 5 Mg Tab Ir PO 5 mg Q6H PRN Administration Pain 7-10 Oxycodone HCl 2.5 mg 03/07/24 21:08 Oxycodone Hcl (*Crx) 2.5 Mg Tab Ir PO ONCE PRN Pain 4-6 Potassium Chloride 20 meq 03/06/24 09:00 03/10/24 09:12 Potassium Chloride 20 Meq Packet (For Liquid) PO 20 meq D
[2024-03-10] MEDS: CEPHALEXIN 500 MG CAPSULE PO (12:41)
[2024-03-10] MEDS: INSULIN ASPART (*BKC) 100 UNITS/ML SUB-Q (12:50)
--- NOTE | 2024-03-10 12:53 | PM.IMPN ---
Progress Note: A&P Assessment and Plan (1) Chronic ulcer of sacral region: Code(s): L98.429 - Non-pressure chronic ulcer of back with unspecified severity Status: Acute (2) Infected pressure ulcer: Code(s): L89.90 - Pressure ulcer of unspecified site, unspecified stage; L08.9 - Local infection of the skin and subcutaneous tissue, unspecified Status: Acute Assessment and Plan: -Continue vancomycin and cefazolin for mildly infected chronic sacral ulcer - Wound culture taken - Wound care consulted normal saline 100 cc/hour- will d/c now as BP improved. Had some hypotensive episodes in the ER- will monitor for now Blood cultures pending. CRP is elevated so will check x-ray of the sacrum. Possible osteomyelitis. 03/06- sacrum/coccyx xray completed- Sacral decubitus ulcer. No specific evidence of osteomyelitis -WOUND care nurse saw pt- Dakins solution and recommended surgical consult. will place order. surgery saw him at the bedside: Continue local wound care with Dakin solution, will need debridement in the operating room, continue antibiotics, pressure offloading 03/08- wound care and continue antibiotics for now. surgery is following 03/09- surgery today (3) Type 2 diabetes mellitus with diabetic neuropathy: Qualifiers: Diabetes mellitus usp insulin use: without medical terminologist use Qualified Code(s): E11.40 - Type 2 diabetes mellitus with diabetic neuropathy, unspecified Code(s): E11.40 - Type 2 diabetes mellitus with diabetic neuropathy, unspecified Status: Acute Assessment and Plan: -glucose monitoring ACHS, LDISS, hypoglycemia protocol -continue GLASS VIAL BENDING CONVEYOR FEEDER long-acting insulin 10 units daily. -check HbA1c- 8 -continue gabapentin (4) Acute blood loss anemia: Code(s): D62 - Acute posthemorrhagic anemia Status: Acute Assessment and Plan: Patient likely has acute blood loss anemia due to bleeding from the wound. monitor hg is 8.8 stable - continue to monitor - no s/s of bleeding from wound, no blood in urine or stool (5) Acute hypokalemia: Code(s): E87.6 - Hypokalemia Status: Acute Assessment and Plan: Acute hypokalemia replaced. Recheck for a.m. labs -will add daily replacement 03/07- reviewed and improved- will continue with daily K replacement for now Plan Full code. SCD Subjective Date/time seen: 03/10/24 12:53 Interval history: This is a pleasant 74-year-old male with PMH arthritis requiring walker for ambulation, BPH, glaucoma, hypertension, hyperlipidemia, lung cancer currently being treated, ANG on CPAP compliant, insulin-dependent diabetes mellitus, dyslipidemia, who presents complaining of worsening of his sacral wound. Few weeks ago he fell on his butt and since then has a wound and has not been able to get in to see wound care yet. Concern of the wound getting infected with bleeding from it and pus drainage and even so his doctor 1 day GLASS VIAL BENDING CONVEYOR FEEDER and was prescribed clindamycin. ER demonstrated BP of 111/59 and lowest 99/50. He has a history of low blood pressure. WBC 4.9, hemoglobin 9.6 without any values to compare previously, potassium 3.3, CRP 12.4. Received a dose of vancomycin and cefazolin 2 g x 1. Admitted for further workup of infected sacral wound on 03/05/2024. 03/05- pt is seen and examined at the bedside. He is alert and oriented, just took pain medication- so pain is still present but subsiding. He denies chest pain, sob. Friedns at the bedside- vising. 03/06- pt is seen and examined- BP somewhat soft- he was getting some IV fluids yesterday for that- but he is asymptomatic and reports BP at home on a lower side as well. His Hg is stable this morning-8.7 K still 3.2- will replace IV and continue oral. Wound care saw him today- dakins solution q12h and recommend surgical consult- will add. 03/07- pt is seen and examined. Gen surgery saw him 03/06- will need debridement in the operating room, continue antib
--- NOTE | 2024-03-10 12:56 | PM.DS ---
DS: Admitting Diagnosis Discharge Date 03/10 Admitting Diagnosis wound- sacral DS: Discharge Diagnosis Discharge Diagnosis (1) Chronic ulcer of sacral region: Code(s): L98.429 - Non-pressure chronic ulcer of back with unspecified severity Status: Acute (2) Infected pressure ulcer: Code(s): L89.90 - Pressure ulcer of unspecified site, unspecified stage; L08.9 - Local infection of the skin and subcutaneous tissue, unspecified Status: Acute Assessment and Plan: -Continue vancomycin and cefazolin for mildly infected chronic sacral ulcer - Wound culture taken - Wound care consulted normal saline 100 cc/hour- will d/c now as BP improved. Had some hypotensive episodes in the ER- will monitor for now Blood cultures pending. CRP is elevated so will check x-ray of the sacrum. Possible osteomyelitis. 03/06- sacrum/coccyx xray completed- Sacral decubitus ulcer. No specific evidence of osteomyelitis -WOUND care nurse saw pt- Dakins solution and recommended surgical consult. will place order. surgery saw him at the bedside: Continue local wound care with Dakin solution, will need debridement in the operating room, continue antibiotics, pressure offloading 03/08- wound care and continue antibiotics for now. surgery is following 03/09- surgery today -03/10- s/p debridement, doing well. continue wound care, no s/s active infection - no need for further abx -will stop. Talked to care coordination and home health for wound care is set up, f/u wound care center in 2 wks (3) Type 2 diabetes mellitus with diabetic neuropathy: Qualifiers: Diabetes mellitus long term acute care registered nurse insulin use: without [place] [facility] use Qualified Code(s): E11.40 - Type 2 diabetes mellitus with diabetic neuropathy, unspecified Code(s): E11.40 - Type 2 diabetes mellitus with diabetic neuropathy, unspecified Status: Acute Assessment and Plan: -glucose monitoring ACHS, LDISS, hypoglycemia protocol -continue WARD NURSE long-acting insulin 10 units daily. -check HbA1c- 8 -continue gabapentin (4) Acute blood loss anemia: Code(s): D62 - Acute posthemorrhagic anemia Status: Acute Assessment and Plan: Patient likely has acute blood loss anemia due to bleeding from the wound. monitor hg is 8.8 stable - continue to monitor - no s/s of bleeding from wound, no blood in urine or stool (5) Acute hypokalemia: Code(s): E87.6 - Hypokalemia Status: Acute Assessment and Plan: Acute hypokalemia replaced. Recheck for a.m. labs -will add daily replacement 03/07- reviewed and improved- will continue with daily K replacement for now Plan final dx: Non-pressure chronic ulcer of back with unspecified severity, s/p debridement Full code. SCD DS: Summary Hospital Course Hospital Course: Interval history: This is a pleasant 74-year-old male with PMH arthritis requiring walker for ambulation, BPH, glaucoma, hypertension, hyperlipidemia, lung cancer currently being treated, ANG on CPAP compliant, insulin-dependent diabetes mellitus, dyslipidemia, who presents complaining of worsening of his sacral wound. Few weeks ago he fell on his butt and since then has a wound and has not been able to get in to see wound care yet. Concern of the wound getting infected with bleeding from it and pus drainage and even so his doctor 1 day WARD NURSE and was prescribed clindamycin. ER demonstrated BP of 111/59 and lowest 99/50. He has a history of low blood pressure. WBC 4.9, hemoglobin 9.6 without any values to compare previously, potassium 3.3, CRP 12.4. Received a dose of vancomycin and cefazolin 2 g x 1. Admitted for further workup of infected sacral wound on 03/05/2024. /- pt is seen and examined at the bedside. He is alert and oriented, just took pain medication- so pain is still present but subsiding. He denies chest pain, sob. Friedns at the bedside- vising. 03/06- pt is seen and examined- BP somewhat soft- he was getting s
== END 2024-03-10 16:45 | disposition home health service (06) | DRG 580 ==
LOC: ANHED 14:29 → ANH3MEDSUR 15:12
PROVIDERS: General Practice; Surgery; Admitting Provider Family Medicine; Emergency Provider Emergency Medicine; PCP Nurse Practitioner; Visit Provider Nurse Practitioner
PROC: 0KDP0ZZ Extraction of Left Hip Muscle, Open Approach (ICD-10-PCS; principal; 2024-03-09 11:30)
DX: L89.153 Pressure ulcer of sacral region, stage 3 (principal); C34.90 Malignant neoplasm of unspecified part of unspecified bronchus or lung; D62 Acute posthemorrhagic anemia; L08.9 Local infection of the skin and subcutaneous tissue, unspecified; E78.5 Hyperlipidemia, unspecified; E87.6 Hypokalemia; E11.42 Type 2 diabetes mellitus with diabetic polyneuropathy; G47.33 Obstructive sleep apnea (adult) (pediatric); H40.9 Unspecified glaucoma; I10 Essential (primary) hypertension; M06.9 Rheumatoid arthritis, unspecified; N40.0 Benign prostatic hyperplasia without lower urinary tract symptoms; Z87.891 Personal history of nicotine dependence; Z79.4 Long term (current) use of insulin; Z79.84 Long term (current) use of oral hypoglycemic drugs; Z99.89 Dependence on other enabling machines and devices
CPT/HCPCS: 36415; 72220; 80048; 80053; 80202; 82565; 82607; 82728; 82746; 82948; 83036; 83540; 83550; 83735; 85025; 85027; 85652; 86140; 87040; 87070; 87205; 97116; 97161; 97165; 99213; 99285; A9270; G0463; J0690; J1815; J2405; J2704; J3010; J3370; J3480; J7030; J7120

== ENCOUNTER 2024-06-30 07:15 | Outpatient (RCR) | payer MEDICARE, SELFPAY ==
[2024-04-07 12:29] VITALS: BMI 23.6
--- NOTE | 2024-04-07 14:20 | WPDWOUNDNOTE ---
Wound Care Note Date/Time: 04/07/24 14:20 History: The patient is status post complex debridement and washout of stage III sacral decubitus ulcer on 03/09/24, please see full operative report for details of that procedure. The wound at that time measured 11 x 5.3 x 3.5 cm. The patient has been doing local wound care with home health home and reports no issues. Patient denies any signs or symptoms of infection. Wound history: Wound at time of discharge was 11 x 5.3 x 3.5 cm stage III sacral decubitus Wound width: 7 Wound length: 3.5 Wound depth: 2.3 Drainage: serous Surrounding tissue appearance: 100% red granulation tissue Tunneling: none Percentage granulation tissue: 100% Treatment/Procedures: silver gel, packing Dressings: packing Assessment and Plan Assessment and plan (1) Chronic ulcer of sacral region: Code(s): L98.429 - Non-pressure chronic ulcer of back with unspecified severity Status: Acute Assessment and Plan: much improved, no signs or symptoms of active infection, continue local wound care, follow-up 6 weeks Review of Systems Review of Systems: All systems reviewed & are unremarkable except as noted in HPI and below Exam Const: General: cooperative, comfortable and no acute distress Resp: Auscultation: clear to auscultation bilaterally Cardio: Rate: regular rate Rhythm: regular rhythm GI: Inspection: normal to inspection
--- NOTE | 2024-05-19 15:26 | WPDWOUNDNOTE ---
Wound Care Note Date/Time: 05/19/24 15:26 History: Pt here for f/u on sacral wound. Pt reports area seems to be healing well. He is getting dressing changes with home health 3 x per wk. Pt denies any s/s infection. Wound history: s/p debridement and washout 04/10 Wound width: 2.5 Wound length: 5.5 Wound depth: 1.2 Drainage: serous Surrounding tissue appearance: good, healthy Tunneling: noen Percentage granulation tissue: 100, some hypertrophic granulation Assessment and Plan Assessment and plan (1) Chronic ulcer of sacral region: Code(s): L98.429 - Non-pressure chronic ulcer of back with unspecified severity Status: Acute Assessment and Plan: doing well, cont local wound care and home health, f/u 6 wks Review of Systems Review of Systems: All systems reviewed & are unremarkable except as noted in HPI and below Exam Const: General: cooperative, comfortable and no acute distress Resp: Auscultation: clear to auscultation bilaterally Cardio: Rate: regular rate Rhythm: regular rhythm GI: Inspection: normal to inspection Back/Spine/Pelvis: Other: sacral ulcer - no s/s infection, much smaller, good granulation base
--- NOTE | 2024-06-30 14:14 | WPDWOUNDNOTE ---
Wound Care Note Date/Time: 06/30/24 14:14 History: Pt returns today for recheck of wound. Pt initially c complex debridement of stage 3 sacral ulcer on 03/09/24. Pt reports everything seems to be healing well. Pt denies any s/s infection. Pt cont to have home health 3x/wk. Wound width: 0.5 cm Wound length: 1.5 cm Wound depth: 0 Drainage: none Surrounding tissue appearance: callous tissue Tunneling: none Percentage granulation tissue: 100% Assessment and Plan Assessment and plan (1) Chronic ulcer of sacral region: Code(s): L98.429 - Non-pressure chronic ulcer of back with unspecified severity Status: Acute Assessment and Plan: wound almost completely healed, cont local wound care, f/u prn Review of Systems Review of Systems: All systems reviewed & are unremarkable except as noted in HPI and below Exam Const: General: cooperative, comfortable and no acute distress Resp: Auscultation: clear to auscultation bilaterally Cardio: Rate: regular rate Rhythm: regular rhythm GI: Inspection: normal to inspection
== END 2024-07-06 23:59 | disposition home or self-care (01) ==
LOC: ANHWOC 07:15
PROVIDERS: PCP Nurse Practitioner; Visit Provider Internal Medicine
DX: L98.429 Non-pressure chronic ulcer of back with unspecified severity (principal); L89.90 Pressure ulcer of unspecified site, unspecified stage; Z48.00 Encounter for change or removal of nonsurgical wound dressing
CPT/HCPCS: 99213; G0463